=== PATIENT | male | born 1970 | race Caucasian/White ===

== ENCOUNTER 2018-11-19 21:00 | Inpatient (IN) | payer OTHER ==
[~2018-11-19] VITALS: Ht 195.6 cm; Wt 99.8 kg
--- NOTE | 2018-11-19 21:08 | NUR ---
ED Nurse Note: PATIENT AMBULATED TO ED CO RIGHT ARM AND HAND ABSCESS AND COUGH X3 DAYS. Pt admit INJECTED METH LAST NIGHT. Pt is AO x 4times, VSS, on room air no distress. ERMD seen Pt at bedside.
[2018-11-19] MEDS ORDERED: Vancomycin 1.5 GM in NS 275 ML IVPB ONE (21:30)
[2018-11-19] MEDS ORDERED: Morphine Sulfate 4mg/ml Inj (IV USE ONLY) IVP ONE (21:30)
[2018-11-19 22:09] LABS: BASOPHILS % (AUTO) 1.1 % (0.0-2.0); EOSINOPHILS % (AUTO) 1.5 % (0.0-3.0); HEMATOCRIT 39.8 % (42.0-52.0); HEMOGLOBIN 13.3 G/DL (14.2-18.0); LYMPHOCYTES % (AUTO) 15.5 % (20.0-45.0); MEAN CORPUSCULAR VOLUME 76 FL (80-99); MONOCYTES % (AUTO) 8.8 % (1.0-10.0); NEUTROPHILS % (AUTO) 73.1 % (45.0-75.0); PLATELET COUNT 311 K/UL (150-450); RED BLOOD COUNT 5.23 M/UL (4.70-6.10)
--- NOTE | 2018-11-19 22:12 | NUR ---
ED Nurse Note: Blood sample sent to lab.
[2018-11-19 22:14] VITALS: BP 134/86
[2018-11-19 22:15] LABS: ANION GAP 9 mmol/L (5-15); BLOOD UREA NITROGEN 14 mg/dL (7-18); CALCIUM 8.7 MG/DL (8.5-10.1); CARBON DIOXIDE 26 MMOL/L (21-32); CHLORIDE 100 MMOL/L (98-107); CREATININE 1.1 MG/DL (0.55-1.30); POTASSIUM 3.8 MMOL/L (3.5-5.1); SODIUM 135 MMOL/L (136-145)
[2018-11-19 22:20] LABS: ALANINE AMINOTRANSFERASE 13 U/L (12-78); ALBUMIN 3.6 G/DL (3.4-5.0); ALKALINE PHOSPHATASE 96 U/L (46-116); ASPARTATE AMINO TRANSFERASE 13 U/L (15-37); BILIRUBIN,TOTAL 0.5 MG/DL (0.2-1.0)
--- NOTE | 2018-11-19 22:55 | NUR ---
ED Nurse Note: Blood culture sent to lab.
--- NOTE | 2018-11-19 23:00 | NUR ---
ED Nurse Note: Pt states not eating for 1 day, food and drinks offered.
--- NOTE | 2018-11-19 23:41 | NUR ---
ED Nurse Note: Pt will admit to 3E med surg, but Pt refused [facility] policy but Pt still refused.
--- NOTE | 2018-11-19 23:50 | NUR ---
ED Nurse Note: Report given to LYNETTE Nur. Pt is AO x 4times, on room air no distress. Belongings and list carry to floor with Pt.
--- NOTE | 2018-11-19 23:53 | Emergency Room Report ---
History of Present Illness General Chief Complaint: Skin Rash/Abscess Source: Patient Present Illness HPI 48-year-old male presents ED for evaluation. Complaining of pain and redness to his right arm for the last 3 days. States that he is an IV drug user and injected. States pain is throbbing, 8 out of 10, nonradiating. Denies fevers or chills. Denies any discharge. History of HIV. States he has not been on his medications for the last 4 months because he does not have a PMD. No other aggravating relieving factors. Denies any other associated symptoms Allergies: Coded Allergies: ABACAVIR (Verified Allergy, Severe, Shortness of Breath, 11/19/18) LAMOTRIGINE (Verified Allergy, Unknown, 11/19/18) Patient History Past Medical History: HIV Past Surgical History: none Pertinent Family History: none Social History: Denies: smoking, alcohol use, drug use Immunizations: UTD Reviewed Nursing Documentation: PMH: Agreed; PSxH: Agreed Nursing Documentation-PMH Hx Cancer: Yes Review of Systems All Other Systems: negative except mentioned in HPI Physical Exam Vital Signs Date Time Temp Pulse Resp B/P (MAP) Pulse Ox O2 Delivery O2 Flow Rate FiO2 11/19/18 21:04 97.5 135 0 142/84 (103) 95 11/19/18 22:14 Room Air Sp02 EP Interpretation: reviewed, normal General Appearance: no apparent distress, alert, GCS 15, non-toxic Head: normocephalic, atraumatic Eyes: bilateral eye normal inspection, bilateral eye PERRL ENT: hearing grossly normal, normal pharynx, no angioedema, normal voice Neck: full range of motion, supple/symm/no masses Respiratory: chest non-tender, lungs clear, normal breath sounds, speaking full sentences Cardiovascular #1: regular rate, rhythm, no edema Cardiovascular #2: 2+ carotid (R), 2+ carotid (L), 2+ radial (R), 2+ radial (L) , 2+ dorsalis pedis (R), 2+ dorsalis pedis (L) Gastrointestinal: normal bowel sounds, non tender, soft, non-distended, no guarding, no rebound Rectal: deferred Genitourinary: normal inspection, no CVA tenderness Musculoskeletal: back normal, gait/station normal, normal range of motion, tender - RUE Neurologic: alert, oriented x3, responsive, motor strength/tone normal, sensory intact, speech normal Psychiatric: judgement/insight normal, memory normal, mood/affect normal, no suicidal/homicidal ideation Reflexes: 3+ bicep (R), 3+ bicep (L), 3+ tricep (R), 3+ tricep (L), 3+ knee (R) , 3+ knee (L) Skin: normal color, warm/dry, well hydrated, other - erythema/induration to R forearm. no fluctuance or discharge Lymphatic: no adenopathy Medical Decision Making Diagnostic Impression: Primary Impression: Cellulitis of right upper extremity Additional Impressions: HIV (human immunodeficiency virus infection) Qualified Codes: B20 - Human immunodeficiency virus [HIV] disease IVDU (intravenous drug user) ER Course Hospital Course 48-year-old male presents to ED with redness, swelling to [facility]. h/o IVDA Differential diagnoses include: Cellulitis, abscess, rash. Clinical course Patient placed on stretcher. After initial history and physical I ordered labs , blood Cx, UA, IVFs labs reviewed - leukocytosis, Hb/Hct stable, no electrolyte abnormalities, lactic ok . Given history of IV drug use and immunocompromised state not taking his HIV meds I believe patient requires admission. broad spectrum antibiotics given. Case discussed with Dr Alvarado and he agreed to accept the patient to his service for further care and support Diagnosis - cellulitis of RUE, HIV, IVDA Patient admitted to floor in serious condition Labs Test 11/19/18 21:53 11/19/18 23:15 White Blood Count 11.0 K/UL (4.8-10.8) Red Blood Count 5.23 M/UL (4.70-6.10) Hemoglobin 13.3 G/DL (14.2-18.0) Hematocrit 39.8 % (42.0-52.0) Mean Corpuscular Volume 76 FL (80-99) Mean Corpuscular Hemoglobin 25.4 PG (27.0-31.0) Mean Corpuscular Hemoglobin Concent 33.5 G/DL (32.0-36.0) Red Cell Distribution Width 14.0 % (11.6-14.8) Platelet Count 311 K/UL (150-450) Mean Platelet Volume 5.3 FL (6.5-10.1) Neutrophils (%) (Auto) 73.1 % (45.0-75.0) Lymphocytes (%) (Auto) 15.5 % (20.0-45.0) Monocytes (%) (Auto) 8.8 % (1.0-10.0) Eosinophils (%) (Auto) 1.5 % (0.0-3.0) Basophils (%) (Auto) 1.1 % (0.0-2.0) Sodium Level 135 MMOL/L (136-145) Potassium Level 3.8 MMOL/L (3.5-5.1) Chloride Level 100 MMOL/L (98-107) Carbon Dioxide Level 26 MMOL/L (21-32) Anion Gap 9 mmol/L (5-15) Blood Urea Nitrogen 14 mg/dL (7-18) Creatinine 1.1 MG/DL (0.55-1.30) Estimat Glomerular Filtration Rate > 60 mL/min (>60) Glucose Level 150 MG/DL (74-106) Lactic Acid Level 1.30 mmol/L (0.4-2.0) Calcium Level 8.7 MG/DL (8.5-10.1) Total Bilirubin 0.5 MG/DL (0.2-1.0) Aspartate Amino Transf (AST/SGOT) 13 U/L (15-37) Alanine Aminotransferase (ALT/SGPT) 13 U/L (12-78) Alkaline Phosphatase 96 U/L (46-116) Total Protein 7.2 G/DL (6.4-8.2) Albumin 3.6 G/DL (3.4-5.0) Globulin 3.6 g/dL Albumin/Globulin Ratio 1.0 (1.0-2.7) Prothrombin Time 10.9 SEC (9.30-11.50) Prothromb Time International Ratio 1.0 (0.9-1.1) Activated Partial Thromboplast Time 32 SEC (23-33) Last Vital Signs Date Time Temp Pulse Resp B/P (MAP) Pulse Ox O2 Delivery O2 Flow Rate FiO2 11/19/18 22:14 98.4 87 20 134/86 95 Room Air Status: improved Disposition: ADMITTED INPATIENT Condition: Serious Scripts No Active Prescriptions or Reported Meds Referrals: DANNY CRESPO,REFERRING (PCP) Patric Eckert MD Nov 19, 2018 23:52
--- NOTE | 2018-11-19 23:55 | NUR ---
ED Nurse Note: Urine sample sent to lab.
[2018-11-19 23:56] VITALS: BP 128/82
[2018-11-20] VITALS (7 sets, daily range): BP systolic 117–140; BP diastolic 78–85
--- NOTE | 2018-11-20 | NUR ---
NURSE NOTES: Received pt from [facility]heeraj via e[facility], CIARA, c/o sore throat and back pain, no distress noted. IV L wrist #22 patent and intact. Will admit pt to floor. All belongings inventoried. MRSA screen done. Refused VRE screen. Bed in lowest position and locked, side rails up x 2, call light within reach. Will continue to monitor.
[2018-11-20] MEDS ORDERED: Chloraseptic Spray 20mL Bottle ORAL PRN (01:15)
[2018-11-20] MEDS: Morphine Sulfate 4mg/ml Inj (IV USE ONLY) IVP PRN ×4 (01:52→23:22)
[2018-11-20] MEDS: guaiFENesin w/Codeine 5ml Liq ud ORAL PRN (02:51)
[2018-11-20 06:15] LABS: EOSINOPHILS % (AUTO) 3.4 % (0.0-3.0); HEMOGLOBIN 12.7 G/DL (14.2-18.0); MEAN CORPUSCULAR VOLUME 78 FL (80-99); MONOCYTES % (AUTO) 7.5 % (1.0-10.0); NEUTROPHILS % (AUTO) 69.2 % (45.0-75.0); PLATELET COUNT 263 K/UL (150-450); RED BLOOD COUNT 4.85 M/UL (4.70-6.10); RED CELL DISTRIBUTION WIDTH 14.5 % (11.6-14.8); WHITE BLOOD COUNT 9.7 K/UL (4.8-10.8)
[2018-11-20 06:42] LABS: ALANINE AMINOTRANSFERASE 11 U/L (12-78); ALBUMIN 3.1 G/DL (3.4-5.0); ALBUMIN/GLOBULIN RATIO 0.9 (1.0-2.7); ALKALINE PHOSPHATASE 80 U/L (46-116); ANION GAP 8 mmol/L (5-15); ASPARTATE AMINO TRANSFERASE 13 U/L (15-37); BILIRUBIN,TOTAL 0.5 MG/DL (0.2-1.0); BLOOD UREA NITROGEN 10 mg/dL (7-18); CALCIUM 8.1 MG/DL (8.5-10.1); CARBON DIOXIDE 25 MMOL/L (21-32); CHLORIDE 97 MMOL/L (98-107); CREATININE 0.9 MG/DL (0.55-1.30); POTASSIUM 3.7 MMOL/L (3.5-5.1); SODIUM 130 MMOL/L (136-145)
--- NOTE | 2018-11-20 07:05 | NUR ---
NURSE NOTES: Report received from Boom RN, rounds made. Patient sleeping in supine position in bed. No distress noted on RA. LW heplock intact, site asymptomatic. Right hand wound noted, ARLINE, redness to surrounding skin, wound bed dry/scabbed, no drainage, awaiting wound RN consultation. Bilateral SCDs, machine off, awaiting on unit from [facility], will apply. Call light in reach, bed in lowest position, will continue to monitor.
--- NOTE | 2018-11-20 07:34 | NUR ---
HAND-OFF: Report given to LYNETTE Quinn. pt in stable condition.
--- NOTE | 2018-11-20 08:25 | NUR ---
NURSE NOTES: Message left for Dr. Catherine regarding patient temperature 101.3, diaphoretic and HR 132. Awaiting call back.
[2018-11-20] MEDS: Vancomycin 1.5gm Premix 275 ML IVPB SCH ×2 (08:44→23:06)
[2018-11-20] MEDS ORDERED: Mylanta II UD 30ml ORAL PRN (10:30)
[2018-11-20] MEDS ORDERED: Miralax 17gm pkt ORAL PRN (10:30)
[2018-11-20] MEDS ORDERED: Milk of Magnesia 30ml Ud ORAL PRN (10:30)
[2018-11-20] MEDS ORDERED: Morphine Sulfate 2mg/ml Inj(IV/IM USE ONLY) IVP PRN (10:30)
[2018-11-20] MEDS ORDERED: LORazepam Inj 2mg/ml 1ml IV PRN (10:30)
--- NOTE | 2018-11-20 10:40 | NUR ---
NURSE NOTES: Wound care nurse assessed patient and provided wound care. YA with redness, skin tightness, pain/warm to touch, mild swelling noted. Elevated RUE on pillow, applied ice pack to RUE. Patient diaphoretic, calm, in & out of sleep, easily aroused. Chloraseptic spray provided at bedside, will continue to monitor. Patient requested that his [employer] and [employer] card to be put in a safe, Nursing supervisor tank house notified. New SCD machine applied, alarm still going off.
--- NOTE | 2018-11-20 10:47 | NUR ---
*-* NO INSURANCE INFORMATION UNABLE TO SEND CLINICALS OR REVIEWS *-*
--- NOTE | 2018-11-20 12:06 | NUR ---
Social Service Note SW met with patient to assess for homelessness and substance abuse. Patient is alert, oriented and verbally responsive. The address provided is a mailing address only. Patient states he has been on and off homeless over a span since 1981. Patient states he doesn't utilize shelters. Patient states he moves between friends, buildings and random places. Patient released from care home 07/2018 and hasn't followed up with health care provider. Patient denies being assigned to an AB 109 program. Patient states he is not on probation or parole. Patient began shooting up since his release from care home. Patient denies a source of income but is able to get by. Patient states he shoots up weekly however it can increase to connective days. Patient states he is HIV positive and hasn't obtain medication since his release. Patient states he obtained HIV through sharing needles. [facility] [phone]. Patient receptive to follow up appointments. Patient's emergency contact is Alfredo Macario [phone]. Patient doesn't appear receptive to halfway referrals and stated he will make some calls to determine where he will go upon discharge. Homeless coordinator will arrange follow up appointments and assess for additional homeless resources. Will continue to monitor.
--- NOTE | 2018-11-20 12:10 | NUR ---
NURSE NOTES: Message left for Dr. Gallagher regarding, LW IV site, pain to touch and slightly red/swollen, unable to obtain new site and need orders for PICC line. Awaiting call back.
--- NOTE | 2018-11-20 14:38 | NUR ---
*-* INSURANCE *-* ALL CLINICALS HAVE BEEN FAXED TO: MEAGHAN JONES: REMI Benavidez F:[phone] P:[phone]
--- NOTE | 2018-11-20 15:47 | NUR ---
NURSE NOTES: WOUND CARE NOTES:Pt presented on admission with wound at base of R thumb. Wound is necrotic with erythematous borders .periwound erythematous and indurated with elevation in skin temp.No odor or exudate noted but pt verbalized wound previously exuded pus.# 2 small pustules noted superior to wound on dorsal and lateral R thumb.R arm swollen. Pt rated pain 10/10. Tx.Plan:Cleanse wound with Saline. Apply Silvasorb gel. Cover with Optifoam drsg. Change Daily and prn.
--- NOTE | 2018-11-20 15:53 | History and Physical ---
History of Present Illness General Date patient seen: Nov 20, 2018 Time patient seen: 15:47 Reason for Hospitalization: Skin Rash/Abscess Present Illness HPI 48-year-old male who presented ED for pain and redness to his right arm for the last 3 days. Stated that he is an IV drug user and injected very recently. Denies fevers or chills. Denied any discharge. He has History of HIV, however has not been on his medications for the last 4 months because he does not have a PMD. No other aggravating relieving factors. Denies any other associated symptoms. He was admitted overnight for IV abx. Today he has a fever >101. States he has a lot of pain in the RUE. He states he is also Hep C positive. Allergies: Coded Allergies: ABACAVIR (Verified Allergy, Severe, Shortness of Breath, 11/19/18) LAMOTRIGINE (Verified Allergy, Unknown, 11/19/18) Medication History No Active Prescriptions or Reported Meds Patient History History Provided By: Patient Healthcare decision maker Resuscitation status Advanced Directive on File Past Medical/Surgical History Past Medical/Surgical History: (1) HIV (human immunodeficiency virus infection) (2) IVDU (intravenous drug user) Family History Family History: Patient reports no known family medical history. Social History Social History: (1) IVDU (intravenous drug user) Review of Systems ROS Narrative General: alert, cooperative, no distress, appears stated age Head: normocephalic, without obvious abnormality, atraumatic Eyes: conjunctivae/corneas clear. PERRL, EOM's intact Throat: lips, mucosa, and tongue normal. MMM Neck: supple, symmetrical, trachea midline, and no JVD Lungs: clear to auscultation bilaterally Heart: regular rate and rhythm, S1, S2 normal, no murmur, click, rub or gallop Abdomen: soft, non-tender, non-distended, bowel sounds normal; no masses or organomegaly Extremities: RUE with redness, warm to touch, tender to palpation, + edema Pulses: 2+ and symmetric Skin: skin color, texture, turgor normal; no rashes or lesions Neurologic: grossly normal, no focal deficits Physical Exam Physical Exam Narrative General: alert, cooperative, no distress, appears stated age Head: normocephalic, without obvious abnormality, atraumatic Eyes: conjunctivae/corneas clear. PERRL, EOM's intact Throat: lips, mucosa, and tongue normal. MMM Neck: supple, symmetrical, trachea midline, and no JVD Lungs: clear to auscultation bilaterally Heart: regular rate and rhythm, S1, S2 normal, no murmur, click, rub or gallop Abdomen: soft, non-tender, non-distended, bowel sounds normal; no masses or organomegaly Extremities: RUE with redness, warm to touch, tender to palpation, + edema Pulses: 2+ and symmetric Skin: skin color, texture, turgor normal; no rashes or lesions Neurologic: grossly normal, no focal deficits Last 24 Hour Vital Signs Date Time Temp Pulse Resp B/P (MAP) Pulse Ox O2 Delivery O2 Flow Rate FiO2 11/20/18 14:04 99.1 11/20/18 12:00 101.1 123 20 119/78 (92) 96 11/20/18 11:00 99.4 11/20/18 09:55 101.2 123 20 123/82 (96) 96 11/20/18 09:00 Room Air 11/20/18 08:00 101.3 125 22 126/78 (94) 95 11/20/18 04:00 99.4 112 20 135/78 (97) 96 11/20/18 00:10 Room Air 11/20/18 00:09 98.1 81 20 128/82 98 Room Air 11/20/18 00:00 98.2 94 20 117/85 (96) 98 11/19/18 23:56 98.1 81 20 128/82 98 Room Air 11/19/18 22:14 98.4 87 20 134/86 95 Room Air 11/19/18 21:04 97.5 135 0 142/84 (103) 95 Intake and Output 11/19/18 11/20/18 18:59 06:59 Intake Total 830 ml Output Total 300 ml Balance 530 ml Intake Oral 830 ml Output Urine Total 300 ml # Voids 2 Laboratory Tests Test 11/19/18 21:53 11/19/18 23:15 11/20/18 05:25 White Blood Count 11.0 K/UL (4.8-10.8) H 9.7 K/UL (4.8-10.8) Red Blood Count 5.23 M/UL (4.70-6.10) 4.85 M/UL (4.70-6.10) Hemoglobin 13.3 G/DL (14.2-18.0) L 12.7 G/DL (14.2-18.0) L Hematocrit 39.8 % (42.0-52.0) L 38.0 % (42.0-52.0) L Mean Corpuscular Volume 76 FL (80-99) L 78 FL (80-99) L Mean Corpuscular Hemoglobin 25.4 PG (27.0-31.0) L 26.1 PG (27.0-31.0) L Mean Corpuscular Hemoglobin Concent 33.5 G/DL (32.0-36.0) 33.4 G/DL (32.0-36.0) Red Cell Distribution Width 14.0 % (11.6-14.8) 14.5 % (11.6-14.8) Platelet Count 311 K/UL (150-450) 263 K/UL (150-450) Mean Platelet Volume 5.3 FL (6.5-10.1) L 6.0 FL (6.5-10.1) L Neutrophils (%) (Auto) 73.1 % (45.0-75.0) 69.2 % (45.0-75.0) Lymphocytes (%) (Auto) 15.5 % (20.0-45.0) L 19.0 % (20.0-45.0) L Monocytes (%) (Auto) 8.8 % (1.0-10.0) 7.5 % (1.0-10.0) Eosinophils (%) (Auto) 1.5 % (0.0-3.0) 3.4 % (0.0-3.0) H Basophils (%) (Auto) 1.1 % (0.0-2.0) 1.0 % (0.0-2.0) Sodium Level 135 MMOL/L (136-145) L 130 MMOL/L (136-145) L Potassium Level 3.8 MMOL/L (3.5-5.1) 3.7 MMOL/L (3.5-5.1) Chloride Level 100 MMOL/L (98-107) 97 MMOL/L (98-107) L Carbon Dioxide Level 26 MMOL/L (21-32) 25 MMOL/L (21-32) Anion Gap 9 mmol/L (5-15) 8 mmol/L (5-15) Blood Urea Nitrogen 14 mg/dL (7-18) 10 mg/dL (7-18) Creatinine 1.1 MG/DL (0.55-1.30) 0.9 MG/DL (0.55-1.30) Estimat Glomerular Filtration Rate > 60 mL/min (>60) > 60 mL/min (>60) Glucose Level 150 MG/DL (74-106) H 117 MG/DL (74-106) H Lactic Acid Level 1.30 mmol/L (0.4-2.0) Calcium Level 8.7 MG/DL (8.5-10.1) 8.1 MG/DL (8.5-10.1) L Total Bilirubin 0.5 MG/DL (0.2-1.0) 0.5 MG/DL (0.2-1.0) Aspartate Amino Transf (AST/SGOT) 13 U/L (15-37) L 13 U/L (15-37) L Alanine Aminotransferase (ALT/SGPT) 13 U/L (12-78) 11 U/L (12-78) L Alkaline Phosphatase 96 U/L (46-116) 80 U/L (46-116) Total Protein 7.2 G/DL (6.4-8.2) 6.5 G/DL (6.4-8.2) Albumin 3.6 G/DL (3.4-5.0) 3.1 G/DL (3.4-5.0) L Globulin 3.6 g/dL 3.4 g/dL Albumin/Globulin Ratio 1.0 (1.0-2.7) 0.9 (1.0-2.7) L Prothrombin Time 10.9 SEC (9.30-11.50) Prothromb Time International Ratio 1.0 (0.9-1.1) Activated Partial Thromboplast Time 32 SEC (23-33) Height (Feet): 6 Height (Inches): 5.00 Weight (Pounds): 220 Medications Current Medications Medications (Trade) Dose Ordered Sig/Macarena Route PRN Reason Start Time Stop Time Status Last Admin Dose Admin Acetaminophen (Tylenol) 650 mg Q4H PRN ORAL Mild Pain (Pain Scale 1-3) 11/20/18 10:30 12/20/18 10:29 11/20/18 11:00 Acetaminophen (Tylenol) 650 mg Q4H PRN ORAL T>100.5 11/20/18 10:30 12/20/18 10:29 Al Hydroxide/Mg Hydroxide (Mylanta II) 30 ml Q6H PRN ORAL dyspepsia 11/20/18 10:30 12/20/18 10:29 Bisacodyl (Dulcolax) 10 mg HSPRN PRN RECTAL Constipation 11/20/18 10:30 12/20/18 10:29 Cetylpyridinium Chloride (Cepacol) 1 lozg Q2H PRN LUCIO For Pain 11/20/18 01:15 12/20/18 01:14 11/20/18 01:52 Dextrose (Dextrose 50%) 25 ml Q30M PRN IV Hypoglycemia 11/20/18 10:30 12/20/18 10:29 Dextrose (Dextrose 50%) 50 ml Q30M PRN IV Hypoglycemia 11/20/18 10:30 12/20/18 10:29 Diphenhydramine HCl (Benadryl) 25 mg Q6H PRN ORAL Itching/Pruritis 11/20/18 10:30 12/20/18 10:29 Docusate Sodium (Colace) 100 mg EVERY 12 HOURS ORAL 11/20/18 21:00 12/20/18 20:59 Guaifenesin/ Codeine Phosphate (Robitussin with codeine) 5 ml Q6H PRN ORAL For Cough 11/20/18 01:15 12/20/18 01:14 11/20/18 02:51 Heparin Sodium (Porcine) (Heparin 5000 units/ml) 5,000 units EVERY 8 HOURS SUBQ 11/20/18 14:00 12/20/18 13:59 Lorazepam (Ativan 2mg/ml 1ml) 0.5 mg Q4H PRN IV For Anxiety 11/20/18 10:30 11/27/18 10:29 Magnesium Hydroxide (Mom) 30 ml HSPRN PRN ORAL Constipation 11/20/18 10:30 12/20/18 10:29 Morphine Sulfate (Morphine Sulfate) 2 mg Q4H PRN IVP Moderate Pain (Pain Scale 4-6) 11/20/18 10:30 11/27/18 10:29 Morphine Sulfate (Morphine Sulfate) 4 mg Q4H PRN IVP Severe Pain (Pain Scale 7-10) 11/20/18 10:30 11/27/18 10:29 Ondansetron HCl (Zofran) 4 mg Q6H PRN IVP Nausea & Vomiting 11/20/18 10:30 12/20/18 10:29 Phenol/Menthol (Chloraseptic) 1 spray Q3H PRN ORAL For Pain 11/20/18 01:15 12/20/18 01:14 Polyethylene Glycol (Miralax) 17 gm HSPRN PRN ORAL Constipation 11/20/18 10:30 12/20/18 10:29 Sodium Chloride 1,000 ml @ 125 mls/hr Q8H IVLG 11/20/18 11:00 12/20/18 10:59 Temazepam (Restoril) 15 mg HSPRN PRN ORAL Insomnia 11/20/18 21:00 11/27/18 20:59 Vancomycin HCl/ Dextrose 275 ml @ 137.5 mls/ hr Q12H IVPB 11/20/18 09:00 11/25/18 08:59 11/20/18 08:44 Assessment/Plan Assessment/Plan: 48 y/o man with HIV pos, presents with RUE cellulitis with poss abscess, with hx of recent IVDA. #RUE Cellulitis, r/o abscess - Cont broad spectrum IV abx - ID consultation - f/u cultures - Pain control - Surgical consult to r/o underlying abscess #HIV disease #Hep C pos #IVDA - Monitor for withdrawal symptoms - Check CD4 count - ID evaluation, pt not on any HIV medications Vinicius Gallagher MD Nov 20, 2018 15:53
[2018-11-20] MEDS: Heparin 5000 units/ml inj SUBQ SCH ×2 (15:56→21:44)
--- NOTE | 2018-11-20 16:13 | NUR ---
CASE MANAGEMENT: INITIAL REVIEW 11/20/2018 48 YO M PRESENTED TO ED FROM HOME CC: SKIN RASH AFTER INJECTING METH LAST NIGHT PMHx: HIV. SI:RIGHT UPPER EXTREMITY CELLULITES. T 97.5 HR 135 B/P 142/84 SATS 95% ON RA WBC 11 NA 135 GLU 150 AST 13 IS: VANCO IV X1 NS BOLUS X1 MORPHINE IV X1 PATIENT ADMITTED TO MED/SURG 11/20/2018 @ 0012 DCP: PATIENT TO BE DISCHARGED TO HOME ONCE MEDICALLY CLEARED. PLAN OF CARE: - Monitor for withdrawal symptoms - Check CD4 count - ID evaluation, pt not on any HIV medications Addendum: 11/21/18 at 1122 by Amy Baker CM [employer]
--- NOTE | 2018-11-20 18:11 | Infectious Diseases Prog Note ---
Assessment/Plan Assessment/Plan Full consult to be dictated: A) 1) right arm/hand cellulitis, ? abscess, sepsis, fevers, mild leukocytosis 2) hiv - not on anti-retroviral therapy 3) ivda 4) hep c P) 1) vancomycin and cefepime 2) check cultures 3) surgical evaluation 4) check cd4/t-cell count and viral load 5) patient will need to follow up with primary hiv and hep c providers as outpatient for genotyping and tx 6) thank you Subjective Allergies: Coded Allergies: ABACAVIR (Verified Allergy, Severe, Shortness of Breath, 11/19/18) LAMOTRIGINE (Verified Allergy, Unknown, 11/19/18) Objective Vital Signs Last 24 Hour Vital Signs Date Time Temp Pulse Resp B/P (MAP) Pulse Ox O2 Delivery O2 Flow Rate FiO2 11/20/18 16:00 98.3 111 20 140/81 (100) 98 11/20/18 14:04 99.1 11/20/18 12:00 101.1 123 20 119/78 (92) 96 11/20/18 11:00 99.4 11/20/18 09:55 101.2 123 20 123/82 (96) 96 11/20/18 09:00 Room Air 11/20/18 08:00 101.3 125 22 126/78 (94) 95 11/20/18 04:00 99.4 112 20 135/78 (97) 96 11/20/18 00:10 Room Air 11/20/18 00:09 98.1 81 20 128/82 98 Room Air 11/20/18 00:00 98.2 94 20 117/85 (96) 98 11/19/18 23:56 98.1 81 20 128/82 98 Room Air 11/19/18 22:14 98.4 87 20 134/86 95 Room Air 11/19/18 21:04 97.5 135 0 142/84 (103) 95 Height (Feet): 6 Height (Inches): 5.00 Weight (Pounds): 220 Laboratory Tests Test 11/19/18 21:53 11/19/18 23:15 11/20/18 05:25 White Blood Count 11.0 K/UL (4.8-10.8) H 9.7 K/UL (4.8-10.8) Red Blood Count 5.23 M/UL (4.70-6.10) 4.85 M/UL (4.70-6.10) Hemoglobin 13.3 G/DL (14.2-18.0) L 12.7 G/DL (14.2-18.0) L Hematocrit 39.8 % (42.0-52.0) L 38.0 % (42.0-52.0) L Mean Corpuscular Volume 76 FL (80-99) L 78 FL (80-99) L Mean Corpuscular Hemoglobin 25.4 PG (27.0-31.0) L 26.1 PG (27.0-31.0) L Mean Corpuscular Hemoglobin Concent 33.5 G/DL (32.0-36.0) 33.4 G/DL (32.0-36.0) Red Cell Distribution Width 14.0 % (11.6-14.8) 14.5 % (11.6-14.8) Platelet Count 311 K/UL (150-450) 263 K/UL (150-450) Mean Platelet Volume 5.3 FL (6.5-10.1) L 6.0 FL (6.5-10.1) L Neutrophils (%) (Auto) 73.1 % (45.0-75.0) 69.2 % (45.0-75.0) Lymphocytes (%) (Auto) 15.5 % (20.0-45.0) L 19.0 % (20.0-45.0) L Monocytes (%) (Auto) 8.8 % (1.0-10.0) 7.5 % (1.0-10.0) Eosinophils (%) (Auto) 1.5 % (0.0-3.0) 3.4 % (0.0-3.0) H Basophils (%) (Auto) 1.1 % (0.0-2.0) 1.0 % (0.0-2.0) Sodium Level 135 MMOL/L (136-145) L 130 MMOL/L (136-145) L Potassium Level 3.8 MMOL/L (3.5-5.1) 3.7 MMOL/L (3.5-5.1) Chloride Level 100 MMOL/L (98-107) 97 MMOL/L (98-107) L Carbon Dioxide Level 26 MMOL/L (21-32) 25 MMOL/L (21-32) Anion Gap 9 mmol/L (5-15) 8 mmol/L (5-15) Blood Urea Nitrogen 14 mg/dL (7-18) 10 mg/dL (7-18) Creatinine 1.1 MG/DL (0.55-1.30) 0.9 MG/DL (0.55-1.30) Estimat Glomerular Filtration Rate > 60 mL/min (>60) > 60 mL/min (>60) Glucose Level 150 MG/DL (74-106) H 117 MG/DL (74-106) H Lactic Acid Level 1.30 mmol/L (0.4-2.0) Calcium Level 8.7 MG/DL (8.5-10.1) 8.1 MG/DL (8.5-10.1) L Total Bilirubin 0.5 MG/DL (0.2-1.0) 0.5 MG/DL (0.2-1.0) Aspartate Amino Transf (AST/SGOT) 13 U/L (15-37) L 13 U/L (15-37) L Alanine Aminotransferase (ALT/SGPT) 13 U/L (12-78) 11 U/L (12-78) L Alkaline Phosphatase 96 U/L (46-116) 80 U/L (46-116) Total Protein 7.2 G/DL (6.4-8.2) 6.5 G/DL (6.4-8.2) Albumin 3.6 G/DL (3.4-5.0) 3.1 G/DL (3.4-5.0) L Globulin 3.6 g/dL 3.4 g/dL Albumin/Globulin Ratio 1.0 (1.0-2.7) 0.9 (1.0-2.7) L Prothrombin Time 10.9 SEC (9.30-11.50) Prothromb Time International Ratio 1.0 (0.9-1.1) Activated Partial Thromboplast Time 32 SEC (23-33) Current Medications Medications (Trade) Dose Ordered Sig/Macarena Route PRN Reason Start Time Stop Time Status Last Admin Dose Admin Acetaminophen (Tylenol) 650 mg Q4H PRN ORAL Mild Pain (Pain Scale 1-3) 11/20/18 10:30 12/20/18 10:29 11/20/18 11:00 Acetaminophen (Tylenol) 650 mg Q4H PRN ORAL T>100.5 11/20/18 10:30 12/20/18 10:29 Al Hydroxide/Mg Hydroxide (Mylanta II) 30 ml Q6H PRN ORAL dyspepsia 11/20/18 10:30 12/20/18 10:29 Bisacodyl (Dulcolax) 10 mg HSPRN PRN RECTAL Constipation 11/20/18 10:30 12/20/18 10:29 Cefepime HCl 2 gm/ Dextrose 100 ml @ 200 mls/hr Q12HR IVPB 11/20/18 21:00 11/27/18 20:59 Cetylpyridinium Chloride (Cepacol) 1 lozg Q2H PRN LUCIO For Pain 11/20/18 01:15 12/20/18 01:14 11/20/18 01:52 Dextrose (Dextrose 50%) 25 ml Q30M PRN IV Hypoglycemia 11/20/18 10:30 12/20/18 10:29 Dextrose (Dextrose 50%) 50 ml Q30M PRN IV Hypoglycemia 11/20/18 10:30 12/20/18 10:29 Diphenhydramine HCl (Benadryl) 25 mg Q6H PRN ORAL Itching/Pruritis 11/20/18 10:30 12/20/18 10:29 Docusate Sodium (Colace) 100 mg EVERY 12 HOURS ORAL 11/20/18 21:00 12/20/18 20:59 Guaifenesin/ Codeine Phosphate (Robitussin with codeine) 5 ml Q6H PRN ORAL For Cough 11/20/18 01:15 12/20/18 01:14 11/20/18 02:51 Heparin Sodium (Porcine) (Heparin 5000 units/ml) 5,000 units EVERY 8 HOURS SUBQ 11/20/18 14:00 12/20/18 13:59 11/20/18 15:56 Lorazepam (Ativan 2mg/ml 1ml) 0.5 mg Q4H PRN IV For Anxiety 11/20/18 10:30 11/27/18 10:29 Magnesium Hydroxide (Mom) 30 ml HSPRN PRN ORAL Constipation 11/20/18 10:30 12/20/18 10:29 Morphine Sulfate (Morphine Sulfate) 2 mg Q4H PRN IVP Moderate Pain (Pain Scale 4-6) 11/20/18 10:30 11/27/18 10:29 Morphine Sulfate (Morphine Sulfate) 4 mg Q4H PRN IVP Severe Pain (Pain Scale 7-10) 11/20/18 10:30 11/27/18 10:29 Ondansetron HCl (Zofran) 4 mg Q6H PRN IVP Nausea & Vomiting 11/20/18 10:30 12/20/18 10:29 Phenol/Menthol (Chloraseptic) 1 spray Q3H PRN ORAL For Pain 11/20/18 01:15 12/20/18 01:14 11/20/18 16:07 Polyethylene Glycol (Miralax) 17 gm HSPRN PRN ORAL Constipation 11/20/18 10:30 12/20/18 10:29 Sodium Chloride 1,000 ml @ 125 mls/hr Q8H IVLG 11/20/18 11:00 12/20/18 10:59 Temazepam (Restoril) 15 mg HSPRN PRN ORAL Insomnia 11/20/18 21:00 11/27/18 20:59 Vancomycin HCl/ Dextrose 275 ml @ 137.5 mls/ hr Q12H IVPB 11/20/18 09:00 11/25/18 08:59 11/20/18 08:44 Prisca June MD Nov 20, 2018 18:11
--- NOTE | 2018-11-20 18:52 | CDS Physician Query ---
PLEASE COMPLETE THE DOCUMENT BEFORE SIGNING Dear ___Elliott Date: _02/20/2019 [employer] Worker/CDS Name: __Carlos [employer] Worker / CDS Phone # Exercise your independent professional judgment when responding to query. Question asked do not imply a particular answer is desired/expected Clinical Documentation States: infection dis cons02/19/19:"right arm/hand cellulitis, ? abscess, sepsis, fevers , mild leukocytosis " Rx: Vanco and Cefepime IV Lab: wbc 11.0 Risk Factors: HIV, IV Drug abuser and Hepc Clinical Findings Show: General variables [x] Fever (temp >38.3 degrees C or 100.4 degrees F) [] Hypothermia (temp<36 degrees C or 96.0 degrees F) [x] Heart rate > 90/min [x] Tachypnea/RR > 20 bpm [] pCO2 < 32 mmHg [] Altered mental status [] Significant edema or positive fluid balance (>20 ml/kg over 24h) [] Hyperglycemia ( Plasma >140 mg/dL or 7.7 mmol/L) in the abscence of diabetes Inflammatory variables [] Leukocytosis (WBC count > 12,000 L1 [] Leukopenia (WBC count < 4000 L1) [] Normal WBC count with greater than 10% immature forms (Bandemia) Hemodynamic variables [] Arterial hypotension (SBP < 90 mm Hg, MAP < 70 mm Hg, or an SBP decrease > 40 mm Hg in adults or less than two sd below normal for age) Organ dysfunction variables [] Arterial hypoxemia (Pao2/Fio2 < 300) [] Acute oliguria (urine output < 0.5 mL/kg/hr for at least 2 hrs despite adequate fluid resuscitation) [] Creatinine increase > 0.5 mg/dL or 44.2 mol/L [] Coagulation abnormalities (INR > 1.5 or aPTT > 60 s) [] Ileus (absent bowel sounds) [] Thrombocytopenia (platelet count < 100,000 L1) [] Hyperbilirubinemia (plasma total bilirubin > 4 mg/dL or 70 mol/L) Tissue Perfusion Variables [] Hyperlactatemia (> 1 mmol/L) [] Decreased capillary refill or mottling Was SEPSIS present on admission? [x] Yes [] No [] Clinically undeterminable Please also document in your Progress Notes and/or Discharge Summary and indicate if the condition was present on admission. Please see my progress note where I documented sepsis due to cellulitis MTDD
--- NOTE | 2018-11-20 20:00 | NUR ---
HAND-OFF: Report given to Yimi RN.
--- NOTE | 2018-11-20 20:05 | NUR ---
NURSE NOTES: Received report from Winston Schaeffer RN. Patient in bed AAO X4 with no complaints of acute pain or discomfort noted at this time. Kept clean, dry, and comfortable in bed. IV line intact and patent SL. On RA with no S/S of resp distress or SOB noted. Safety precaution in place; siderails X2 up, call light within reach, bed in lowest position, brakes and alarm on at all times. Needs and wants anticipated and attended. Surgical wound DSG lower spine area kept dry and intact. Will continue plan of care and monitor for any changes noted. Noted right hand cellulitis, Kept affected area clean, dry and elevated.
[2018-11-20] MEDS: Docusate 100mg cap ORAL SCH (21:44)
[2018-11-21] VITALS: BP 130/80
[2018-11-21] MEDS: Morphine Sulfate 4mg/ml Inj (IV USE ONLY) IVP PRN ×4 (03:06→18:05)
--- NOTE | 2018-11-21 03:30 | NUR ---
NURSE NOTES: Patient in bed asleep with no S/S of distress noted at this time. Will continue to monitor.
[2018-11-21 04:00] VITALS: BP 124/85
[2018-11-21] MEDS: Heparin 5000 units/ml inj SUBQ SCH ×3 (06:31→21:22)
--- NOTE | 2018-11-21 07:40 | NUR ---
HAND-OFF: Report given to Neda Khan RN. Patient in stable condition, endorsed plan of care.
--- NOTE | 2018-11-21 07:45 | NUR ---
NURSE NOTES: WALKING ROUNDS DONE WITH OUTGOING RN. PATIENT ASLEEP BUT AROUSABLE. QUESTIONS ANSWERED NEEDS MET AT THIS TIME. RUE EDEMATOUS PRESENT. ELEVATED ON PILLOW. BRACHIAL AND PEDAL PULSES EQUAL BILATERALLY IN STRENGTH. DISCUSSED PLAN OF CARE FOR THE DAY. VERBALIZED UNDERSTANDING. PAIN CONTROLLED WITH IV NARCOTICS. CALL LIGHT WITHIN BED IN LOWEST POSITION.
[2018-11-21 08:00] VITALS: BP 132/86
[2018-11-21] MEDS: Vancomycin 1.5gm Premix 275 ML IVPB SCH (08:56)
[2018-11-21] MEDS: Docusate 100mg cap ORAL SCH ×2 (08:57→21:20)
[2018-11-21 09:18] LABS: BASOPHILS % (AUTO) 1.3 % (0.0-2.0); EOSINOPHILS % (AUTO) 3.7 % (0.0-3.0); HEMATOCRIT 44.1 % (42.0-52.0); HEMOGLOBIN 14.3 G/DL (14.2-18.0); LYMPHOCYTES % (AUTO) 25.1 % (20.0-45.0); MEAN CORPUSCULAR VOLUME 79 FL (80-99); MONOCYTES % (AUTO) 7.6 % (1.0-10.0); NEUTROPHILS % (AUTO) 62.1 % (45.0-75.0); PLATELET COUNT 263 K/UL (150-450); RED BLOOD COUNT 5.57 M/UL (4.70-6.10); RED CELL DISTRIBUTION WIDTH 14.7 % (11.6-14.8); WHITE BLOOD COUNT 9.6 K/UL (4.8-10.8)
[2018-11-21 09:28] LABS: ANION GAP 7 mmol/L (5-15); BLOOD UREA NITROGEN 9 mg/dL (7-18); CALCIUM 8.5 MG/DL (8.5-10.1); CARBON DIOXIDE 27 MMOL/L (21-32); CHLORIDE 98 MMOL/L (98-107); CREATININE 0.9 MG/DL (0.55-1.30); POTASSIUM 4.1 MMOL/L (3.5-5.1); SODIUM 132 MMOL/L (136-145)
--- NOTE | 2018-11-21 10:30 | NUR ---
NURSE NOTES: CHARGE NURSE RECEIVED REPORT FROM LAB OF GRAM POSITIVE BLOOD CULTURES. LAB TO NOTIFY DR. SCHOFIELD. PATIENT CURRENTLY ON ANTIBIOTICS. MD HERE DOING ROUNDS AND INFORMED NO INTERVENTIONS AT THIS TIME.
--- NOTE | 2018-11-21 11:06 | NUR ---
*-* INSURANCE *-* ALL CLINICALS HAVE BEEN FAXED TO: [employer] JONES: REMI Byrd F:[phone] P:[phone]
--- NOTE | 2018-11-21 11:07 | NUR ---
NURSE NOTES: Received a call from Reema from the lab. Pt is positive Gram (+) Cocci in cluster in 4 bottles. Carried to the primary RN. Per Reema from the lab, Dr Ac will be notified
--- NOTE | 2018-11-21 11:51 | General Progress Note ---
Assessment/Plan Assessment/Plan: 48 y/o man with HIV pos, presents with RUE cellulitis with poss abscess, with hx of recent IVDA. #RUE Cellulitis, r/o abscess - Cont broad spectrum IV abx - ID consultation noted, cefepime added - f/u cultures- now with blood cx growing gram pos rods - May need echo to r/o endocarditis - Pain control - Surgical consult to r/o underlying abscess #HIV disease #Hep C pos #IVDA - Monitor for withdrawal symptoms - Check CD4 count - ID evaluation noted, pt not on any HIV medications, will likely need better outpt followup Subjective Date patient seen: Nov 21, 2018 Time patient seen: 11:49 ROS Limited/Unobtainable: No Allergies: Coded Allergies: ABACAVIR (Verified Allergy, Severe, Shortness of Breath, 11/19/18) LAMOTRIGINE (Verified Allergy, Unknown, 11/19/18) Subjective Feels better today, abx broadened by ID, states RUE is less swollen, still has pain and redness. denied fevers/chills. Objective Last 24 Hour Vital Signs Date Time Temp Pulse Resp B/P (MAP) Pulse Ox O2 Delivery O2 Flow Rate FiO2 11/21/18 08:31 99.2 11/21/18 08:00 99.2 109 19 132/86 (101) 100 11/21/18 04:00 99.2 111 20 124/85 (98) 96 11/21/18 00:00 99.7 124 20 130/80 (97) 95 11/20/18 23:00 Room Air 11/20/18 21:00 Room Air 11/20/18 20:00 99.0 120 20 123/80 (94) 97 11/20/18 16:00 98.3 111 20 140/81 (100) 98 11/20/18 14:04 99.1 11/20/18 12:00 101.1 123 20 119/78 (92) 96 Intake and Output 11/20/18 11/21/18 19:00 07:00 Intake Total 1420 ml Output Total 725 ml 1150 ml Balance 695 ml -1150 ml Intake Oral 1420 ml Output Urine Total 725 ml 1150 ml Laboratory Tests 11/20/18 18:50: White Blood Count 10.2, Lymphocytes 16, Nucleated Red Blood Cells , Absolute Lymphocytes (Cell Immunity 1.6, Percent CD3 Cells 69.5, Absolute CD3 Count 1112 , Percent CD4 Cells 9.7L, Absolute CD4 Count 155L, T-Lymphocyte CD4/CD8 Ratio 0.17L, Percent CD8 Cells 58.2H, Absolute CD8 Count 931H, Rapid Plasma Reagin Non reactive, Hepatitis A IgM Antibody Negative, Hepatitis B Surface Antigen Negative, Hepatitis B Core IgM Antibody Negative, Hepatitis C Antibody 0.8, HIV- 1 RNA (PCR) log10 Value [Pending], HIV-1 RNA Ultraquantitative (PCR) [Pending] 11/21/18 07:15: Sodium Level 132L, Potassium Level 4.1, Chloride Level 98, Carbon Dioxide Level 27, Anion Gap 7, Blood Urea Nitrogen 9, Creatinine 0.9, Estimat Glomerular Filtration Rate > 60, Glucose Level 88, Calcium Level 8.5, Magnesium Level 1.7L 11/21/18 08:00: White Blood Count 9.6, Red Blood Count 5.57, Hemoglobin 14.3, Hematocrit 44.1, Mean Corpuscular Volume 79L, Mean Corpuscular Hemoglobin 25.6L, Mean Corpuscular Hemoglobin Concent 32.3, Red Cell Distribution Width 14.7, Platelet Count 263, Mean Platelet Volume 5.8L, Neutrophils (%) (Auto) 62.1, Lymphocytes ( %) (Auto) 25.1, Monocytes (%) (Auto) 7.6, Eosinophils (%) (Auto) 3.7H, Basophils (%) (Auto) 1.3, Vancomycin Level Trough 9.3 Height (Feet): 6 Height (Inches): 5.00 Weight (Pounds): 220 Objective General: alert, cooperative, no distress, appears stated age Head: normocephalic, without obvious abnormality, atraumatic Eyes: conjunctivae/corneas clear. PERRL, EOM's intact Throat: lips, mucosa, and tongue normal. MMM Neck: supple, symmetrical, trachea midline, and no JVD Lungs: clear to auscultation bilaterally Heart: regular rate and rhythm, S1, S2 normal, no murmur, click, rub or gallop Abdomen: soft, non-tender, non-distended, bowel sounds normal; no masses or organomegaly Extremities: RUE erythema/warmth over antecubital fossa, some edema Pulses: 2+ and symmetric Skin: multiple pustules all over skin, mostly in extremities, likely from IVDU Neurologic: grossly normal, no focal deficits Vinicius Gallagher MD Nov 21, 2018 11:51
[2018-11-21 12:00] VITALS: BP 138/80
--- NOTE | 2018-11-21 14:18 | NUR ---
CASE MANAGEMENT: REVIEW 11/21/2018 SI:RIGHT UPPER EXTREMITY CELLULITES. T 98.8 HR 105 RR 19 B/P 138/80 SATS 99% ON RA NA 132 MG 1.7 IS: IVF @ 125 mL/HR CEFEPIME IV Q12H VANCO IV Q8H MED/SURG STATUS DCP: PATIENT TO BE DISCHARGED TO HOME ONCE MEDICALLY CLEARED. PLAN OF CARE: - f/u cultures- now with blood cx growing gram pos rods - May need echo to r/o endocarditis - Pain control - Surgical consult to r/o underlying abscess
--- NOTE | 2018-11-21 15:10 | Consultation ---
History of Present Illness General Reason for Hospitalization: Skin Rash/Abscess Present Illness HPI 48 year old male with history of HIV uncontrolled and IVDA recently presented with Right arm cellulitis. states he has been using IV drugs recently but in his left arm. for a few days right arm suddenly began to have cellulitis and worsened with pain and discomfort. came to ED with fevers, tachy, and leukocytosis. admitted for care and management. surgery called to evaluate arm. patient seen, chart reviewed, patient examined. states he does not seek medical care and has been using for some time. Allergies: Coded Allergies: ABACAVIR (Verified Allergy, Severe, Shortness of Breath, 11/19/18) LAMOTRIGINE (Verified Allergy, Unknown, 11/19/18) Medication History No Active Prescriptions or Reported Meds Patient History History Provided By: Patient, Medical Record, PMD Healthcare decision maker Resuscitation status Advanced Directive on File Past Medical/Surgical History Past Medical/Surgical History: (1) HIV (human immunodeficiency virus infection) (2) IVDU (intravenous drug user) (3) Cellulitis of right upper extremity Family History Family History: Patient reports no known family medical history. Review of Systems Review of Symptoms General ROS: no weight loss or fever Psychological ROS: no depression or mood changes, no memory loss Ophthalmic ROS: no visual changes or eye irritation ENT ROS: no nasal congestion, hearing loss, dizziness Allergy and Immunology ROS: no allergic symptoms or urticaria Hematological and Lymphatic ROS: no swollen glands, unusual bleeding or bruising Endocrine ROS: no polyuria, polydipsia, weight changes, temperature intolerance Respiratory ROS: no cough, shortness of breath, or wheezing Cardiovascular ROS: no chest pain or dyspnea on exertion Gastrointestinal ROS: denies abdominal pain, no bright red blood in stool. Musculoskeletal ROS: no myalgias or arthralgias Neurological ROS: no TIA or stroke symptoms Dermatological ROS: no new or changing skin lesions, rashes or pruritis Physical Exam Physical Exam General appearance: alert, cooperative, no distress, appears stated age Head: Normocephalic, without obvious abnormality, atraumatic Eyes: conjunctivae/corneas clear. PERRL, EOM's intact. Fundi benign Throat: Lips, mucosa, and tongue normal. Teeth and gums normal Neck: supple, symmetrical, trachea midline, no adenopathy, thyroid: not enlarged, symmetric, no tenderness/mass/nodules, no carotid bruit and no JVD Lungs: clear to auscultation bilaterally Heart: regular rate and rhythm, S1, S2 normal, no murmur, click, rub or gallop Abdomen: soft, non-tender. Bowel sounds normal. No masses, no organomegaly Extremities: extremities with traumatic needle sticks, no cyanosis but edema. RUE with edema from wrist to upper arm. tender. no abscess Pulses: 2+ and symmetric Skin: Skin color, texture, turgor normal. No rashes or lesions Neurologic: Grossly normal Last 24 Hour Vital Signs Date Time Temp Pulse Resp B/P (MAP) Pulse Ox O2 Delivery O2 Flow Rate FiO2 11/21/18 12:00 98.8 105 19 138/80 (99) 99 11/21/18 09:00 Room Air 11/21/18 08:31 99.2 11/21/18 08:00 99.2 109 19 132/86 (101) 100 11/21/18 04:00 99.2 111 20 124/85 (98) 96 11/21/18 00:00 99.7 124 20 130/80 (97) 95 11/20/18 23:00 Room Air 11/20/18 21:00 Room Air 11/20/18 20:00 99.0 120 20 123/80 (94) 97 11/20/18 16:00 98.3 111 20 140/81 (100) 98 Intake and Output 11/20/18 11/21/18 19:00 07:00 Intake Total 1420 ml 125 ml Output Total 725 ml 1150 ml Balance 695 ml -1025 ml Intake Oral 1420 ml IV Total 125 ml Output Urine Total 725 ml 1150 ml Laboratory Tests Test 11/20/18 18:50 11/21/18 07:15 11/21/18 08:00 White Blood Count 10.2 x10E3/uL (3.4-10.8) 9.6 K/UL (4.8-10.8) Lymphocytes 16 % (Not Estab.) Nucleated Red Blood Cells (.) Absolute Lymphocytes (Cell Immunity 1.6 x10E3/uL (0.7-3.1) Percent CD3 Cells 69.5 % (57.5-86.2) Absolute CD3 Count 1112 /uL (622-2402) Percent CD4 Cells 9.7 % (30.8-58.5) L Absolute CD4 Count 155 /uL (359-1519) L T-Lymphocyte CD4/CD8 Ratio 0.17 (0.92-3.72) L Percent CD8 Cells 58.2 % (12.0-35.5) H Absolute CD8 Count 931 /uL (109-897) H Rapid Plasma Reagin Non reactive (Non Reactive) Hepatitis A IgM Antibody Negative (Negative) Hepatitis B Surface Antigen Negative (Negative) Hepatitis B Core IgM Antibody Negative (Negative) Hepatitis C Antibody 0.8 s/co ratio (0.0-0.9) HIV-1 RNA (PCR) log10 Value Pending HIV-1 RNA Ultraquantitative (PCR) Pending Sodium Level 132 MMOL/L (136-145) L Potassium Level 4.1 MMOL/L (3.5-5.1) Chloride Level 98 MMOL/L (98-107) Carbon Dioxide Level 27 MMOL/L (21-32) Anion Gap 7 mmol/L (5-15) Blood Urea Nitrogen 9 mg/dL (7-18) Creatinine 0.9 MG/DL (0.55-1.30) Estimat Glomerular Filtration Rate > 60 mL/min (>60) Glucose Level 88 MG/DL (74-106) Calcium Level 8.5 MG/DL (8.5-10.1) Magnesium Level 1.7 MG/DL (1.8-2.4) L Red Blood Count 5.57 M/UL (4.70-6.10) Hemoglobin 14.3 G/DL (14.2-18.0) Hematocrit 44.1 % (42.0-52.0) Mean Corpuscular Volume 79 FL (80-99) L Mean Corpuscular Hemoglobin 25.6 PG (27.0-31.0) L Mean Corpuscular Hemoglobin Concent 32.3 G/DL (32.0-36.0) Red Cell Distribution Width 14.7 % (11.6-14.8) Platelet Count 263 K/UL (150-450) Mean Platelet Volume 5.8 FL (6.5-10.1) L Neutrophils (%) (Auto) 62.1 % (45.0-75.0) Lymphocytes (%) (Auto) 25.1 % (20.0-45.0) Monocytes (%) (Auto) 7.6 % (1.0-10.0) Eosinophils (%) (Auto) 3.7 % (0.0-3.0) H Basophils (%) (Auto) 1.3 % (0.0-2.0) Vancomycin Level Trough 9.3 ug/mL (5.0-12.0) Height (Feet): 6 Height (Inches): 5.00 Weight (Pounds): 220 Medications Current Medications Medications (Trade) Dose Ordered Sig/Macarena Route PRN Reason Start Time Stop Time Status Last Admin Dose Admin Acetaminophen (Tylenol) 650 mg Q4H PRN ORAL Mild Pain (Pain Scale 1-3) 11/20/18 10:30 12/20/18 10:29 11/20/18 11:00 Acetaminophen (Tylenol) 650 mg Q4H PRN ORAL T>100.5 11/20/18 10:30 12/20/18 10:29 Al Hydroxide/Mg Hydroxide (Mylanta II) 30 ml Q6H PRN ORAL dyspepsia 11/20/18 10:30 12/20/18 10:29 Bisacodyl (Dulcolax) 10 mg HSPRN PRN RECTAL Constipation 11/20/18 10:30 12/20/18 10:29 Cefepime HCl 2 gm/ Dextrose 100 ml @ 200 mls/hr Q12HR IVPB 11/20/18 21:00 11/27/18 20:59 11/21/18 08:55 Cetylpyridinium Chloride (Cepacol) 1 lozg Q2H PRN LUCIO For Pain 11/20/18 01:15 12/20/18 01:14 11/20/18 01:52 Dextrose (Dextrose 50%) 25 ml Q30M PRN IV Hypoglycemia 11/20/18 10:30 12/20/18 10:29 Dextrose (Dextrose 50%) 50 ml Q30M PRN IV Hypoglycemia 11/20/18 10:30 12/20/18 10:29 Diphenhydramine HCl (Benadryl) 25 mg Q6H PRN ORAL Itching/Pruritis 11/20/18 10:30 12/20/18 10:29 Docusate Sodium (Colace) 100 mg EVERY 12 HOURS ORAL 11/20/18 21:00 12/20/18 20:59 11/21/18 08:57 Guaifenesin/ Codeine Phosphate (Robitussin with codeine) 5 ml Q6H PRN ORAL For Cough 11/20/18 01:15 12/20/18 01:14 11/20/18 02:51 Heparin Sodium (Porcine) (Heparin 5000 units/ml) 5,000 units EVERY 8 HOURS SUBQ 11/20/18 14:00 12/20/18 13:59 11/21/18 14:10 Lorazepam (Ativan 2mg/ml 1ml) 0.5 mg Q4H PRN IV For Anxiety 11/20/18 10:30 11/27/18 10:29 Magnesium Hydroxide (Mom) 30 ml HSPRN PRN ORAL Constipation 11/20/18 10:30 12/20/18 10:29 Morphine Sulfate (Morphine Sulfate) 2 mg Q4H PRN IVP Moderate Pain (Pain Scale 4-6) 11/20/18 10:30 11/27/18 10:29 Morphine Sulfate (Morphine Sulfate) 4 mg Q4H PRN IVP Severe Pain (Pain Scale 7-10) 11/20/18 10:30 11/27/18 10:29 11/21/18 13:58 Ondansetron HCl (Zofran) 4 mg Q6H PRN IVP Nausea & Vomiting 11/20/18 10:30 12/20/18 10:29 Phenol/Menthol (Chloraseptic) 1 spray Q3H PRN ORAL For Pain 11/20/18 01:15 12/20/18 01:14 11/20/18 16:07 Polyethylene Glycol (Miralax) 17 gm HSPRN PRN ORAL Constipation 11/20/18 10:30 12/20/18 10:29 Sodium Chloride 1,000 ml @ 125 mls/hr Q8H IVLG 11/20/18 11:00 12/20/18 10:59 11/21/18 13:58 Temazepam (Restoril) 15 mg HSPRN PRN ORAL Insomnia 11/20/18 21:00 11/27/18 20:59 Vancomycin HCl (Vanco rx to dose) 1 ea DAILY PRN MISC . 11/21/18 09:45 12/21/18 09:44 Vancomycin HCl 1 gm/Dextrose 275 ml @ 183.708 mls/hr Q8H IVPB 11/21/18 17:00 11/26/18 16:59 Assessment/Plan Problem List: (1) HIV (human immunodeficiency virus infection) ICD Codes: B20 - Human immunodeficiency virus [HIV] disease SNOMED: 25288613 Qualifiers: Qualified Codes: B20 - Human immunodeficiency virus [HIV] disease (2) IVDU (intravenous drug user) ICD Codes: F19.90 - Other psychoactive substance use, unspecified, uncomplicated SNOMED: 753738370 (3) Cellulitis of right upper extremity Assessment & Plan: arm evaluated patient admits to IVDA but in left arm states has not used right arm for drugs recently used in past cellulitis and edema but no abscess noted. no significant trauma noted. no wound labs noted micro pending no acute surgical intervention planned will monitor arm elevate arm cont IV ABx as per ID thank you will follow with recs ICD Codes: L03.113 - Cellulitis of right upper limb SNOMED: 327076967 Liborio Mccoy Nov 21, 2018 15:10
[2018-11-21 16:00] VITALS: BP 120/74
[2018-11-21] MEDS ORDERED: NS 275ml ONE (18:07)
[2018-11-21] MEDS ORDERED: Tubing IV Secondary IV ONE (18:07)
[2018-11-21] MEDS: Vancomycin 1gm/D5W 275ml IVPB SCH ×2 (18:12)
--- NOTE | 2018-11-21 18:40 | NUR ---
NURSE NOTES: UNEVENTFUL DAY. PATIENT WITH C/O RUE PAIN AND REQUIRING PAIN MEDS ORDERED.
--- NOTE | 2018-11-21 19:00 | Consultation ---
DATE OF CONSULTATION: 11/20/2018 INFECTIOUS DISEASE CONSULTATION CONSULTING PHYSICIAN: Prisca June M.D. ATTENDING PHYSICIAN: Vinicius Gallagher M.D. REFERRING PHYSICIAN: Vinicius Gallagher M.D. REASON FOR CONSULTATION: Right arm and hand cellulitis, rule out abscess and mild leukocytosis. CHIEF COMPLAINT: The patient's chief complaint coming into the hospital is right arm and hand cellulitis. HISTORY OF PRESENT ILLNESS: This is a 48-year-old male with history of IV drug abuse, also history of HIV and hepatitis C. The patient presents to [facility] with right arm and hand swelling likely with cellulitis, mild leukocytosis, and fevers. Infectious Disease consultation is requested for antibiotic management. I saw the patient and placed him on Vanco and cefepime. REVIEW OF SYSTEMS: Main issue is right arm and hand swelling and cellulitis and pain, fevers, and chills.HEAD AND NECK: No head pain or neck pain. CARDIAC: No chest pain. GASTROINTESTINAL: No nausea or diarrhea. GENITOURINARY: No dysuria or frequency. PULMONARY: No congestion or shortness of breath. PAST MEDICAL HISTORY: The patient has past medical history of HIV and he is not on antiviral therapy. He has history of IV drug abuse or history of hepatitis C. No history of diabetes or hypertension. ALLERGIES: Include abacavir and lamotrigine. FAMILY HISTORY: Noncontributory. SOCIAL HISTORY: Positive for IV drug abuse. No history of ETOH abuse. I am not clear about smoking history. No history of smoking or alcohol abuse to my knowledge. MEDICATIONS: Upon the MAR, the patient is on following medications. He is on Vanco. I put him on cefepime. He is on Restoril, Colace, Tylenol, morphine. He is on MiraLAX, Zofran, lorazepam, diphenhydramine, IV fluids, bisacodyl. Again antibiotics Vanco, cefepime, Zofran, Cepacol, . Outside medications noted and reconciliated. PHYSICAL EXAMINATION: VITAL SIGNS: The patient's T-max is 101.2, pulse rate 123, respiratory rate 20, blood pressure 123/82, saturation 96%. GENERAL: He is alert and oriented x3. No acute distress. HEAD AND NECK: Oral exam, no thrush. Eye exam, no icterus. Normocephalic. Neck is supple. HEART: Regular. No gallop or murmur. No friction rub. ABDOMEN: Soft. Positive bowel sounds. Nontender. LUNGS: Clear bilaterally. No rhonchi or rales. SKIN: No rash. MUSCULOSKELETAL: No septic arthritis. EXTREMITIES: Lower extremities without cellulitis. Right arm has significant redness, swelling of the right arm and hand. . GENITOURINARY: No Reddy. LINE SITES: Without phlebitis. NEUROLOGIC: Intact. LABORATORY DATA: The patient's white count 9.7, hemoglobin 12.7, platelet count is 263. Creatinine is 0.9. LFTs were noted. Blood cultures are pending. CD4 viral load was ordered. Viral load is pending. ASSESSMENT AND PLAN: 1. The patient has severe right arm and hand cellulitis, rule out underlying abscess with sepsis, fevers, leukocytosis. Continue Vanco and cefepime. I would cover for MRSA and Pseudomonas with history of IV drug abuse. Check blood cultures. Watch the patient clinically. Continue Vanco and cefepime for right arm and hand cellulitis for now. The patient also be seen by Surgery. 2. HIV. He is not on antiviral therapy. Check CD4 and viral load. The patient will need to follow up with the HIV physician to get genotyping and start on antiretroviral therapy. 3. Hepatitis C. The patient to get genotyping and viral load as an outpatient. Start antiviral therapy for hepatitis C by hepatitis C physician. 4. IV drug abuse. 5. No diabetes history or hypertension. 6. Allergies to abacavir and lamotrigine. 7. Social history positive for IV drug abuse. 8. Family history noncontributory. 9. MAR was noted. 10. Case was discussed with RN. 11. Continue treatments per primary consultants. Prisca June M.D. DR: DOROTHY JOB#: [id number] CC:
--- NOTE | 2018-11-21 19:33 | NUR ---
HAND-OFF: Report given to GABRIEL VARELA RN.
--- NOTE | 2018-11-21 19:34 | NUR ---
NURSE NOTES: Received report & pt from LYNETTE Gamez. Pt lying in bed, a&ox4, in room air. No s/s of acute distress & no c/o pain at this time. Right hand with optifoam. IV site intact with IVF running as ordered. Bed in lowest position, call light within reach. Will continue to monitor.
[2018-11-21 20:00] VITALS: BP 131/70
[2018-11-22] VITALS: BP 117/68
[2018-11-22] MEDS: Vancomycin 1gm/D5W 275ml IVPB SCH ×6 (00:20→17:26)
--- NOTE | 2018-11-22 00:28 | Infectious Diseases Prog Note ---
Assessment/Plan Assessment/Plan Full consult to be dictated: A) 1) right arm/hand cellulitis, sepsis, fevers with gram + bacteremia 2) hiv - not on anti-retroviral therapy 3) ivda 4) hep c P) 1) vancomycin and cefepime 2) check cultures final, check echo 3) surgical evaluation noted 4) check cd4/t-cell count and viral load 5) patient will need to follow up with primary hiv and hep c providers as outpatient for genotyping and tx 6) thank you Subjective HEENT: Denies: congestion Respiratory: Denies: shortness of breath Cardiovascular: Denies: chest pain Gastrointestinal/Abdominal: Denies: nausea, vomiting, diarrhea Genitourinary: Denies: dysuria Allergies: Coded Allergies: ABACAVIR (Verified Allergy, Severe, Shortness of Breath, 11/19/18) LAMOTRIGINE (Verified Allergy, Unknown, 11/19/18) Objective Vital Signs Last 24 Hour Vital Signs Date Time Temp Pulse Resp B/P (MAP) Pulse Ox O2 Delivery O2 Flow Rate FiO2 11/21/18 21:00 Room Air 11/21/18 20:00 99.0 115 18 131/70 (90) 95 11/21/18 18:35 98.1 11/21/18 16:00 98.1 116 19 120/74 (89) 99 11/21/18 12:00 98.8 105 19 138/80 (99) 99 11/21/18 09:00 Room Air 11/21/18 08:00 99.2 109 19 132/86 (101) 100 11/21/18 04:00 99.2 111 20 124/85 (98) 96 Height (Feet): 6 Height (Inches): 5.00 Weight (Pounds): 220 General Appearance: no acute distress HEENT: normocephalic Respiratory/Chest: lungs clear, normal breath sounds, no respiratory distress, no accessory muscle use Cardiovascular: normal rate, regular rhythm Abdomen: normal bowel sounds, soft, non tender, no organomegaly Microbiology Date/Time Source Procedure Growth Status 11/19/18 22:45 Blood Blood Culture - Preliminary Resulted 11/19/18 22:30 Blood Blood Culture - Preliminary Resulted Laboratory Tests Test 11/21/18 07:15 11/21/18 08:00 Sodium Level 132 MMOL/L (136-145) L Potassium Level 4.1 MMOL/L (3.5-5.1) Chloride Level 98 MMOL/L (98-107) Carbon Dioxide Level 27 MMOL/L (21-32) Anion Gap 7 mmol/L (5-15) Blood Urea Nitrogen 9 mg/dL (7-18) Creatinine 0.9 MG/DL (0.55-1.30) Estimat Glomerular Filtration Rate > 60 mL/min (>60) Glucose Level 88 MG/DL (74-106) Calcium Level 8.5 MG/DL (8.5-10.1) Magnesium Level 1.7 MG/DL (1.8-2.4) L White Blood Count 9.6 K/UL (4.8-10.8) Red Blood Count 5.57 M/UL (4.70-6.10) Hemoglobin 14.3 G/DL (14.2-18.0) Hematocrit 44.1 % (42.0-52.0) Mean Corpuscular Volume 79 FL (80-99) L Mean Corpuscular Hemoglobin 25.6 PG (27.0-31.0) L Mean Corpuscular Hemoglobin Concent 32.3 G/DL (32.0-36.0) Red Cell Distribution Width 14.7 % (11.6-14.8) Platelet Count 263 K/UL (150-450) Mean Platelet Volume 5.8 FL (6.5-10.1) L Neutrophils (%) (Auto) 62.1 % (45.0-75.0) Lymphocytes (%) (Auto) 25.1 % (20.0-45.0) Monocytes (%) (Auto) 7.6 % (1.0-10.0) Eosinophils (%) (Auto) 3.7 % (0.0-3.0) H Basophils (%) (Auto) 1.3 % (0.0-2.0) Vancomycin Level Trough 9.3 ug/mL (5.0-12.0) Current Medications Medications (Trade) Dose Ordered Sig/Macarena Route PRN Reason Start Time Stop Time Status Last Admin Dose Admin Acetaminophen (Tylenol) 650 mg Q4H PRN ORAL Mild Pain (Pain Scale 1-3) 11/20/18 10:30 12/20/18 10:29 11/20/18 11:00 Acetaminophen (Tylenol) 650 mg Q4H PRN ORAL T>100.5 11/20/18 10:30 12/20/18 10:29 Al Hydroxide/Mg Hydroxide (Mylanta II) 30 ml Q6H PRN ORAL dyspepsia 11/20/18 10:30 12/20/18 10:29 Bisacodyl (Dulcolax) 10 mg HSPRN PRN RECTAL Constipation 11/20/18 10:30 12/20/18 10:29 Cefepime HCl 2 gm/ Dextrose 100 ml @ 200 mls/hr Q12HR IVPB 11/20/18 21:00 11/27/18 20:59 11/21/18 21:20 Cetylpyridinium Chloride (Cepacol) 1 lozg Q2H PRN LUCIO For Pain 11/20/18 01:15 12/20/18 01:14 11/20/18 01:52 Dextrose (Dextrose 50%) 25 ml Q30M PRN IV Hypoglycemia 11/20/18 10:30 12/20/18 10:29 Dextrose (Dextrose 50%) 50 ml Q30M PRN IV Hypoglycemia 11/20/18 10:30 12/20/18 10:29 Diphenhydramine HCl (Benadryl) 25 mg Q6H PRN ORAL Itching/Pruritis 11/20/18 10:30 12/20/18 10:29 Docusate Sodium (Colace) 100 mg EVERY 12 HOURS ORAL 11/20/18 21:00 12/20/18 20:59 11/21/18 21:20 Guaifenesin/ Codeine Phosphate (Robitussin with codeine) 5 ml Q6H PRN ORAL For Cough 11/20/18 01:15 12/20/18 01:14 11/20/18 02:51 Heparin Sodium (Porcine) (Heparin 5000 units/ml) 5,000 units EVERY 8 HOURS SUBQ 11/20/18 14:00 12/20/18 13:59 11/21/18 21:22 Lorazepam (Ativan 2mg/ml 1ml) 0.5 mg Q4H PRN IV For Anxiety 11/20/18 10:30 11/27/18 10:29 Magnesium Hydroxide (Mom) 30 ml HSPRN PRN ORAL Constipation 11/20/18 10:30 12/20/18 10:29 Morphine Sulfate (Morphine Sulfate) 2 mg Q4H PRN IVP Moderate Pain (Pain Scale 4-6) 11/20/18 10:30 11/27/18 10:29 11/21/18 21:21 Morphine Sulfate (Morphine Sulfate) 4 mg Q4H PRN IVP Severe Pain (Pain Scale 7-10) 11/20/18 10:30 11/27/18 10:29 11/21/18 18:05 Ondansetron HCl (Zofran) 4 mg Q6H PRN IVP Nausea & Vomiting 11/20/18 10:30 12/20/18 10:29 Phenol/Menthol (Chloraseptic) 1 spray Q3H PRN ORAL For Pain 11/20/18 01:15 12/20/18 01:14 11/20/18 16:07 Polyethylene Glycol (Miralax) 17 gm HSPRN PRN ORAL Constipation 11/20/18 10:30 12/20/18 10:29 Sodium Chloride 1,000 ml @ 125 mls/hr Q8H IVLG 11/20/18 11:00 12/20/18 10:59 11/21/18 13:58 Temazepam (Restoril) 15 mg HSPRN PRN ORAL Insomnia 11/20/18 21:00 11/27/18 20:59 Vancomycin HCl (Vanco rx to dose) 1 ea DAILY PRN MISC . 11/21/18 09:45 12/21/18 09:44 Vancomycin HCl 1 gm/Dextrose 275 ml @ 183.708 mls/hr Q8H IVPB 11/21/18 17:00 11/26/18 16:59 11/22/18 00:20 Prisca June MD Nov 22, 2018 00:28
[2018-11-22] MEDS: Bactrim-DS 1 tab ORAL SCH ×2 (00:48→23:52)
[2018-11-22] MEDS: Morphine Sulfate 4mg/ml Inj (IV USE ONLY) IVP PRN ×6 (01:23→21:23)
[2018-11-22 04:00] VITALS: BP 120/71
--- NOTE | 2018-11-22 04:53 | NUR ---
NURSE NOTES: Henry from [employer] called to inform RN that pt is positive for MRSA of the nares. Charge nurse made aware.
[2018-11-22] MEDS: Heparin 5000 units/ml inj SUBQ SCH ×3 (05:22→21:24)
--- NOTE | 2018-11-22 05:30 | NUR ---
NURSE NOTES: Right thumb dressing changed.
--- NOTE | 2018-11-22 06:55 | NUR ---
TRANSFER TO FLOOR: Pt transferred to [facility]-2. All belongings checked with receiving RN. Gave report to LYNETTE Solis. Pt instable condition.
--- NOTE | 2018-11-22 06:55 | NUR ---
NURSE NOTES: Pt is transferred from [facility] room 308 to [facility] room 419-2 in stable condition.Report received from LYNETTE Leung. Pt is awake and alert. No acute distress noted. Right hand cellulitis site dressing dry and intact. NS running at 125ml/hr. Pt's belongings verified with patient and transferring nurse Xochitl. Pt refused to turn over belongings for safekeeping. Belongings at bedside. Pt oriented to the unit. Bed locked low in position,side rails up and call light within reach. Pt instructed to call for assistance before getting out unit. Pt will be monitored.
--- NOTE | 2018-11-22 07:20 | NUR ---
HAND-OFF: Report given to LYNETTE Rudolph.
[2018-11-22 07:29] LABS: BASOPHILS % (AUTO) 1.3 % (0.0-2.0); EOSINOPHILS % (AUTO) 8.3 % (0.0-3.0); HEMATOCRIT 37.4 % (42.0-52.0); HEMOGLOBIN 12.5 G/DL (14.2-18.0); LYMPHOCYTES % (AUTO) 25.5 % (20.0-45.0); MEAN CORPUSCULAR VOLUME 79 FL (80-99); MONOCYTES % (AUTO) 10.6 % (1.0-10.0); NEUTROPHILS % (AUTO) 54.3 % (45.0-75.0); PLATELET COUNT 235 K/UL (150-450); RED BLOOD COUNT 4.76 M/UL (4.70-6.10); RED CELL DISTRIBUTION WIDTH 14.5 % (11.6-14.8); WHITE BLOOD COUNT 6.1 K/UL (4.8-10.8)
[2018-11-22 07:54] LABS: ANION GAP 9 mmol/L (5-15); BLOOD UREA NITROGEN 9 mg/dL (7-18); CALCIUM 8.3 MG/DL (8.5-10.1); CARBON DIOXIDE 27 MMOL/L (21-32); CHLORIDE 101 MMOL/L (98-107); CREATININE 0.8 MG/DL (0.55-1.30); POTASSIUM 4.4 MMOL/L (3.5-5.1); SODIUM 136 MMOL/L (136-145)
[2018-11-22 08:00] VITALS: BP 126/76
[2018-11-22] MEDS: Docusate 100mg cap ORAL SCH ×2 (09:00→20:57)
--- NOTE | 2018-11-22 10:10 | NUR ---
NURSE NOTES: pt in bed with no sob nor in any form of distress noted. breathing regular and unlabored. pain med given as ordered. new iv site obtained. will continue to monitor
[2018-11-22 12:00] VITALS: BP 110/67
--- NOTE | 2018-11-22 13:36 | General Progress Note ---
Assessment/Plan Assessment/Plan: 48 y/o man with HIV pos, presents with RUE cellulitis with poss abscess, with hx of recent IVDA. #RUE Cellulitis, r/o abscess - Cont broad spectrum IV abx - ID consultation noted, cefepime added - f/u cultures- now with blood cx growing staph aureus, await sensi - f/u echo to r/o endocarditis - Pain control - Surgical consult to r/o underlying abscess noted, no intervention rec #HIV disease #Hep C pos #IVDA - Monitor for withdrawal symptoms - Check CD4 count - ID evaluation noted, pt not on any HIV medications, will likely need better outpt followup Subjective Date patient seen: Nov 22, 2018 Time patient seen: 13:35 ROS Limited/Unobtainable: No Allergies: Coded Allergies: ABACAVIR (Verified Allergy, Severe, Shortness of Breath, 11/19/18) LAMOTRIGINE (Verified Allergy, Unknown, 11/19/18) Subjective Still with RUE pain, and redness. denied fevers/chills. Seen by surgery without rec for surgical intervention Objective Last 24 Hour Vital Signs Date Time Temp Pulse Resp B/P (MAP) Pulse Ox O2 Delivery O2 Flow Rate FiO2 11/22/18 12:00 97.2 93 16 110/67 (81) 99 11/22/18 09:44 98.6 11/22/18 09:34 Room Air 11/22/18 08:00 98.6 101 16 126/76 (93) 99 11/22/18 04:00 98.1 109 16 120/71 (87) 96 11/22/18 00:00 98.3 111 17 117/68 (84) 97 11/21/18 21:00 Room Air 11/21/18 20:00 99.0 115 18 131/70 (90) 95 11/21/18 16:00 98.1 116 19 120/74 (89) 99 Intake and Output 11/21/18 11/22/18 19:00 07:00 Intake Total 2910.0 ml 2693.708 ml Output Total 950 ml Balance 1960.0 ml 2693.708 ml Intake Oral 960 ml 1760 ml IV Total 1950.0 ml 933.708 ml Output Urine Total 950 ml # Voids 3 # Bowel Movements 2 Laboratory Tests 11/22/18 05:00: White Blood Count 6.1, Red Blood Count 4.76, Hemoglobin 12.5L, Hematocrit 37.4L , Mean Corpuscular Volume 79L, Mean Corpuscular Hemoglobin 26.2L, Mean Corpuscular Hemoglobin Concent 33.4, Red Cell Distribution Width 14.5, Platelet Count 235, Mean Platelet Volume 5.8L, Neutrophils (%) (Auto) 54.3, Lymphocytes ( %) (Auto) 25.5, Monocytes (%) (Auto) 10.6H, Eosinophils (%) (Auto) 8.3H, Basophils (%) (Auto) 1.3, Sodium Level 136, Potassium Level 4.4, Chloride Level 101, Carbon Dioxide Level 27, Anion Gap 9, Blood Urea Nitrogen 9, Creatinine 0.8 , Estimat Glomerular Filtration Rate > 60, Glucose Level 102, Calcium Level 8.3L Height (Feet): 6 Height (Inches): 5.00 Weight (Pounds): 220 Objective General: alert, cooperative, no distress, appears stated age Head: normocephalic, without obvious abnormality, atraumatic Eyes: conjunctivae/corneas clear. PERRL, EOM's intact Throat: lips, mucosa, and tongue normal. MMM Neck: supple, symmetrical, trachea midline, and no JVD Lungs: clear to auscultation bilaterally Heart: regular rate and rhythm, S1, S2 normal, no murmur, click, rub or gallop Abdomen: soft, non-tender, non-distended, bowel sounds normal; no masses or organomegaly Extremities: RUE erythema/warmth over antecubital fossa, some edema, redness appears to have spread to forearm Pulses: 2+ and symmetric Skin: multiple pustules all over skin, mostly in extremities, likely from IVDU Neurologic: grossly normal, no focal deficits Vinicius Gallagher MD Nov 22, 2018 13:36
--- NOTE | 2018-11-22 15:10 | NUR ---
CASE MANAGEMENT: REVIEW 11/22/2018 SI:RIGHT UPPER EXTREMITY CELLULITES. T 98.3 HR 111 RR 17 B/P 117/68 SATS 97% ON RA CA 8.3 IS: IVF @ 125 mL/HR CEFEPIME IV Q12H VANCO IV Q8H MED/SURG STATUS DCP: PATIENT TO BE DISCHARGED TO HOME ONCE MEDICALLY CLEARED.
[2018-11-22 16:00] VITALS: BP 99/62
--- NOTE | 2018-11-22 16:56 | Surgery Progress Note ---
Surgery Progress Note Subjective Additional Comments afebrile, HD stable, labs noted, micro with staph bacteremia exam stable Objective Last 24 Hour Vital Signs Date Time Temp Pulse Resp B/P (MAP) Pulse Ox O2 Delivery O2 Flow Rate FiO2 11/22/18 16:00 97.3 61 19 99/62 (74) 99 11/22/18 13:50 97.2 11/22/18 12:00 97.2 93 16 110/67 (81) 99 11/22/18 09:34 Room Air 11/22/18 08:00 98.6 101 16 126/76 (93) 99 11/22/18 04:00 98.1 109 16 120/71 (87) 96 11/22/18 00:00 98.3 111 17 117/68 (84) 97 11/21/18 21:00 Room Air 11/21/18 20:00 99.0 115 18 131/70 (90) 95 I&O Intake and Output 11/21/18 11/22/18 19:00 07:00 Intake Total 2910.0 ml 2693.708 ml Output Total 950 ml Balance 1960.0 ml 2693.708 ml Intake Oral 960 ml 1760 ml IV Total 1950.0 ml 933.708 ml Output Urine Total 950 ml # Voids 3 # Bowel Movements 2 Dressing: dry Drains: none Cardiovascular: RSR Respiratory: clear Abdomen: soft, flat, non-tender, present bowel sounds Extremities: edema, tenderness, no cyanosis Laboratory Tests Test 11/22/18 05:00 11/22/18 16:44 White Blood Count 6.1 K/UL (4.8-10.8) Red Blood Count 4.76 M/UL (4.70-6.10) Hemoglobin 12.5 G/DL (14.2-18.0) L Hematocrit 37.4 % (42.0-52.0) L Mean Corpuscular Volume 79 FL (80-99) L Mean Corpuscular Hemoglobin 26.2 PG (27.0-31.0) L Mean Corpuscular Hemoglobin Concent 33.4 G/DL (32.0-36.0) Red Cell Distribution Width 14.5 % (11.6-14.8) Platelet Count 235 K/UL (150-450) Mean Platelet Volume 5.8 FL (6.5-10.1) L Neutrophils (%) (Auto) 54.3 % (45.0-75.0) Lymphocytes (%) (Auto) 25.5 % (20.0-45.0) Monocytes (%) (Auto) 10.6 % (1.0-10.0) H Eosinophils (%) (Auto) 8.3 % (0.0-3.0) H Basophils (%) (Auto) 1.3 % (0.0-2.0) Sodium Level 136 MMOL/L (136-145) Potassium Level 4.4 MMOL/L (3.5-5.1) Chloride Level 101 MMOL/L (98-107) Carbon Dioxide Level 27 MMOL/L (21-32) Anion Gap 9 mmol/L (5-15) Blood Urea Nitrogen 9 mg/dL (7-18) Creatinine 0.8 MG/DL (0.55-1.30) Estimat Glomerular Filtration Rate > 60 mL/min (>60) Glucose Level 102 MG/DL (74-106) Calcium Level 8.3 MG/DL (8.5-10.1) L Vancomycin Level Trough Pending Plan Problems: (1) HIV (human immunodeficiency virus infection) (2) IVDU (intravenous drug user) (3) Cellulitis of right upper extremity Assessment & Plan: arm evaluated patient admits to IVDA but in left arm states has not used right arm for drugs recently used in past cellulitis and edema but no abscess noted. no significant trauma noted. no wound labs noted micro w/ staph bacteremia no acute surgical intervention planned will monitor arm elevate arm cont IV ABx as per ID thank you will follow with Liborio Lara Nov 22, 2018 16:56
[2018-11-22] MEDS: Vancomycin 1.25gm Premix IVPB SCH (18:10)
--- NOTE | 2018-11-22 18:38 | Infectious Diseases Prog Note ---
Assessment/Plan Assessment/Plan ASSESSMENT AND PLAN: 1. right arm/hand cellulitis, staph aureus bacteremia, sepsis, mrsa colonization , fevers, leukocytosis, ivda - vancomycin - day # 3 antibiotics, will need at least 2 weeks iv abx and 4 weeks total abx - check surveillance blood cultures, monitor labs - TTE without vegetation per report - clinically improved 2. HIV/AIDS - cd4 - 155 - patient will need outpatient genotyping and anti- retroviral tx with primary HIV MD, bactrim prophylaxis started 3. Hepatitis C. The patient to get genotyping and viral load as an outpatient. Start antiviral therapy for hepatitis C by hepatitis C physician. 4. IV drug abuse. 5. No diabetes history or hypertension. 6. Allergies to abacavir and lamotrigine. 7. Social history positive for IV drug abuse. 8. Family history noncontributory. 9. MAR was noted. 10. Case was discussed with RN. 11. Continue treatments per primary consultants. Subjective Constitutional: Denies: fever HEENT: Denies: congestion Respiratory: Denies: shortness of breath Cardiovascular: Denies: chest pain Gastrointestinal/Abdominal: Denies: nausea, vomiting, diarrhea Genitourinary: Denies: dysuria, hematuria Neurologic: Denies: headache Psychiatric: Denies: depression Skin: Denies: rash Hematologic: Denies: bleeding Musculoskeletal: Denies: pain Allergies: Coded Allergies: ABACAVIR (Verified Allergy, Severe, Shortness of Breath, 11/19/18) LAMOTRIGINE (Verified Allergy, Unknown, 11/19/18) Objective Vital Signs Last 24 Hour Vital Signs Date Time Temp Pulse Resp B/P (MAP) Pulse Ox O2 Delivery O2 Flow Rate FiO2 11/22/18 17:58 97.2 11/22/18 17:04 97.2 11/22/18 16:00 97.3 61 19 99/62 (74) 99 11/22/18 12:00 97.2 93 16 110/67 (81) 99 11/22/18 09:34 Room Air 11/22/18 08:00 98.6 101 16 126/76 (93) 99 11/22/18 04:00 98.1 109 16 120/71 (87) 96 11/22/18 00:00 98.3 111 17 117/68 (84) 97 11/21/18 21:00 Room Air 11/21/18 20:00 99.0 115 18 131/70 (90) 95 Height (Feet): 6 Height (Inches): 5.00 Weight (Pounds): 220 General Appearance: no acute distress HEENT: normocephalic, atraumatic, anicteric, mucous membranes moist Respiratory/Chest: lungs clear, normal breath sounds, no respiratory distress, no accessory muscle use Cardiovascular: normal rate, regular rhythm, no gallop/murmur, no JVD Abdomen: normal bowel sounds, soft, non tender, no organomegaly, non distended Genitourinary: other - no tellez Extremities: no cyanosis, other - less right arm swelling and redness/warmth Skin: no rash 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, alert Lymphatic: no neck adenopathy Musculoskeletal: no effusion Objective echo - no vegetation, report noted Microbiology Date/Time Source Procedure Growth Status 11/19/18 22:45 Blood Blood Culture - Preliminary Staphylococcus Aureus Resulted 11/19/18 22:30 Blood Blood Culture - Preliminary Staphylococcus Aureus Resulted 11/20/18 05:00 Nasal Nares Right MRSA Culture - Final Staphylococcus Aureus - Mrsa Complete Laboratory Tests Test 11/22/18 05:00 11/22/18 16:44 White Blood Count 6.1 K/UL (4.8-10.8) Red Blood Count 4.76 M/UL (4.70-6.10) Hemoglobin 12.5 G/DL (14.2-18.0) L Hematocrit 37.4 % (42.0-52.0) L Mean Corpuscular Volume 79 FL (80-99) L Mean Corpuscular Hemoglobin 26.2 PG (27.0-31.0) L Mean Corpuscular Hemoglobin Concent 33.4 G/DL (32.0-36.0) Red Cell Distribution Width 14.5 % (11.6-14.8) Platelet Count 235 K/UL (150-450) Mean Platelet Volume 5.8 FL (6.5-10.1) L Neutrophils (%) (Auto) 54.3 % (45.0-75.0) Lymphocytes (%) (Auto) 25.5 % (20.0-45.0) Monocytes (%) (Auto) 10.6 % (1.0-10.0) H Eosinophils (%) (Auto) 8.3 % (0.0-3.0) H Basophils (%) (Auto) 1.3 % (0.0-2.0) Sodium Level 136 MMOL/L (136-145) Potassium Level 4.4 MMOL/L (3.5-5.1) Chloride Level 101 MMOL/L (98-107) Carbon Dioxide Level 27 MMOL/L (21-32) Anion Gap 9 mmol/L (5-15) Blood Urea Nitrogen 9 mg/dL (7-18) Creatinine 0.8 MG/DL (0.55-1.30) Estimat Glomerular Filtration Rate > 60 mL/min (>60) Glucose Level 102 MG/DL (74-106) Calcium Level 8.3 MG/DL (8.5-10.1) L Vancomycin Level Trough 10.7 ug/mL (5.0-12.0) Current Medications Medications (Trade) Dose Ordered Sig/Macarena Route PRN Reason Start Time Stop Time Status Last Admin Dose Admin Acetaminophen (Tylenol) 650 mg Q4H PRN ORAL Mild Pain (Pain Scale 1-3) 11/20/18 10:30 12/20/18 10:29 11/22/18 16:34 Acetaminophen (Tylenol) 650 mg Q4H PRN ORAL T>100.5 11/20/18 10:30 12/20/18 10:29 Al Hydroxide/Mg Hydroxide (Mylanta II) 30 ml Q6H PRN ORAL dyspepsia 11/20/18 10:30 12/20/18 10:29 Bisacodyl (Dulcolax) 10 mg HSPRN PRN RECTAL Constipation 11/20/18 10:30 12/20/18 10:29 Cefepime HCl 2 gm/ Dextrose 100 ml @ 200 mls/hr Q12HR IVPB 11/20/18 21:00 11/27/18 20:59 11/22/18 09:10 Cetylpyridinium Chloride (Cepacol) 1 lozg Q2H PRN LUCIO For Pain 11/20/18 01:15 12/20/18 01:14 11/20/18 01:52 Dextrose (Dextrose 50%) 25 ml Q30M PRN IV Hypoglycemia 11/20/18 10:30 12/20/18 10:29 Dextrose (Dextrose 50%) 50 ml Q30M PRN IV Hypoglycemia 11/20/18 10:30 12/20/18 10:29 Diphenhydramine HCl (Benadryl) 25 mg Q6H PRN ORAL Itching/Pruritis 11/20/18 10:30 12/20/18 10:29 Docusate Sodium (Colace) 100 mg EVERY 12 HOURS ORAL 11/20/18 21:00 12/20/18 20:59 11/21/18 21:20 Guaifenesin/ Codeine Phosphate (Robitussin with codeine) 5 ml Q6H PRN ORAL For Cough 11/20/18 01:15 12/20/18 01:14 11/20/18 02:51 Heparin Sodium (Porcine) (Heparin 5000 units/ml) 5,000 units EVERY 8 HOURS SUBQ 11/20/18 14:00 12/20/18 13:59 11/22/18 13:22 Lorazepam (Ativan 2mg/ml 1ml) 0.5 mg Q4H PRN IV For Anxiety 11/20/18 10:30 11/27/18 10:29 Magnesium Hydroxide (Mom) 30 ml HSPRN PRN ORAL Constipation 11/20/18 10:30 12/20/18 10:29 Morphine Sulfate (Morphine Sulfate) 2 mg Q4H PRN IVP Moderate Pain (Pain Scale 4-6) 11/20/18 10:30 11/27/18 10:29 11/21/18 21:21 Morphine Sulfate (Morphine Sulfate) 4 mg Q4H PRN IVP Severe Pain (Pain Scale 7-10) 11/20/18 10:30 11/27/18 10:29 11/22/18 17:28 Ondansetron HCl (Zofran) 4 mg Q6H PRN IVP Nausea & Vomiting 11/20/18 10:30 12/20/18 10:29 Phenol/Menthol (Chloraseptic) 1 spray Q3H PRN ORAL For Pain 11/20/18 01:15 12/20/18 01:14 11/20/18 16:07 Polyethylene Glycol (Miralax) 17 gm HSPRN PRN ORAL Constipation 11/20/18 10:30 12/20/18 10:29 Temazepam (Restoril) 15 mg HSPRN PRN ORAL Insomnia 11/20/18 21:00 11/27/18 20:59 Trimethoprim/ Sulfamethoxazole (Bactrim-DS) 1 tab Q24HRS ORAL 11/22/18 00:30 11/29/18 00:29 11/22/18 00:48 Vancomycin HCl (Vanco rx to dose) 1 ea DAILY PRN MISC . 11/21/18 09:45 12/21/18 09:44 Vancomycin HCl/ Dextrose 275 ml @ 183.333 mls/hr Q8H IVPB 11/22/18 18:00 11/27/18 17:59 11/22/18 18:10 Prisca June MD Nov 22, 2018 18:38
--- NOTE | 2018-11-22 19:29 | NUR ---
HAND-OFF: Report given to LYNETTE Roe.
--- NOTE | 2018-11-22 19:52 | NUR ---
NURSE NOTES: PATIENT ASLEEP IN BED. ON RA, NO SOB, NO ACUTE DISTRESS, LFA IV INTACT, PATENT, RUNNING ABX. 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 BED IN LOWEST POSITION, LOCKED, ALARMS ON. CALL LIGHT IN REACH.
[2018-11-22 20:00] VITALS: BP 117/85
[2018-11-23] VITALS: BP 118/77
[2018-11-23] MEDS: Vancomycin 1.25gm Premix IVPB SCH ×3 (02:11→18:02)
[2018-11-23] MEDS: Morphine Sulfate 4mg/ml Inj (IV USE ONLY) IVP PRN ×5 (02:11→21:17)
[2018-11-23 04:00] VITALS: BP 108/69
--- NOTE | 2018-11-23 05:00 | NUR ---
NURSE NOTES: RECEIVED PHONE CALL FROM ANTHONY, PATIENT IS NOTED POSITIVE FOR MRSA BLOOD. UPDATED ISOLATION ASSESSMENT.
[2018-11-23] MEDS: Heparin 5000 units/ml inj SUBQ SCH ×3 (06:17→21:18)
[2018-11-23 08:00] VITALS: BP 110/71
[2018-11-23] MEDS: Docusate 100mg cap ORAL SCH ×2 (08:16→21:00)
[2018-11-23 09:23] LABS: BASOPHILS % (AUTO) 1.3 % (0.0-2.0); EOSINOPHILS % (AUTO) 10.6 % (0.0-3.0); HEMATOCRIT 38.8 % (42.0-52.0); HEMOGLOBIN 12.7 G/DL (14.2-18.0); LYMPHOCYTES % (AUTO) 27.7 % (20.0-45.0); MEAN CORPUSCULAR VOLUME 79 FL (80-99); MONOCYTES % (AUTO) 7.5 % (1.0-10.0); NEUTROPHILS % (AUTO) 52.9 % (45.0-75.0); PLATELET COUNT 300 K/UL (150-450); RED BLOOD COUNT 4.92 M/UL (4.70-6.10); RED CELL DISTRIBUTION WIDTH 14.7 % (11.6-14.8); WHITE BLOOD COUNT 6.2 K/UL (4.8-10.8)
[2018-11-23 09:34] LABS: ANION GAP 8 mmol/L (5-15); BLOOD UREA NITROGEN 11 mg/dL (7-18); CALCIUM 8.9 MG/DL (8.5-10.1); CARBON DIOXIDE 28 MMOL/L (21-32); CHLORIDE 97 MMOL/L (98-107); POTASSIUM 4.5 MMOL/L (3.5-5.1); SODIUM 133 MMOL/L (136-145)
--- NOTE | 2018-11-23 11:19 | Cardiology Report ---
APPROVED REPORT EXAM: Two-dimensional and M-mode echocardiogram with Doppler and color Doppler. INDICATION Vegetation M-Mode DIMENSIONS IVSd1.4 (0.7-1.1cm)Left Atrium (MM)3.3 (1.6-4.0cm) LVDd4.7 (3.5-5.6cm)Aortic Root2.9 (2.0-3.7cm) PWd1.1 (0.7-1.1cm)Aortic Cusp Exc.1.9 (1.5-2.0cm) LVDs2.3 (2.5-4.0cm) PWs1.9 cm Normal left ventricular chamber size, systolic function and wall motion. Left ventricular ejection fraction estimated to be 55 %. Mild left ventricular hypertrophy. No evidence of pericardial effusion. All other cardiac chamber sizes are within normal limits. Normal appearing aortic, mitral,and tricuspid valves. Mild mitral annulus and aortic root calcification. Pulmonic valve not visualized. IVC is normal in size with physiological collapse. No discrete vegetations seen. A color flow and spectral Doppler study was performed and revealed: No aortic regurgitation. No mitral regurgitation. Normal left ventricular diastolic function. Trace tricuspid regurgitation. pulmonic regurgitation present.
[2018-11-23 12:00] VITALS: BP 118/77
--- NOTE | 2018-11-23 13:42 | Surgery Progress Note ---
Surgery Progress Note Subjective Additional Comments No acute overnight events. Afebrile, hemodynamically stable. States still has pain in the right upper extremity but edema and cellulitis improved. More range of motion. No nausea vomiting fever chills Objective Last 24 Hour Vital Signs Date Time Temp Pulse Resp B/P (MAP) Pulse Ox O2 Delivery O2 Flow Rate FiO2 11/23/18 11:32 99.2 11/23/18 09:00 Room Air 11/23/18 08:00 98.9 90 18 110/71 (84) 97 11/23/18 04:00 99.2 95 18 108/69 (82) 96 11/23/18 00:00 98.4 89 18 118/77 (91) 99 11/22/18 21:00 Room Air 11/22/18 20:00 98.0 96 18 117/85 (96) 96 11/22/18 17:04 97.2 11/22/18 16:00 97.3 61 19 99/62 (74) 99 I&O Intake and Output 11/22/18 11/23/18 19:00 07:00 Intake Total 1635.000 ml 450 ml Balance 1635.000 ml 450 ml Intake Oral 1260 ml 450 ml IV Total 375.000 ml # Voids 2 3 Dressing: dry Wound: clean Drains: none Cardiovascular: RSR Respiratory: clear Abdomen: soft, flat, present bowel sounds Extremities: edema, tenderness, no cyanosis Laboratory Tests Test 11/22/18 16:44 11/23/18 09:02 Vancomycin Level Trough 10.7 ug/mL (5.0-12.0) White Blood Count 6.2 K/UL (4.8-10.8) Red Blood Count 4.92 M/UL (4.70-6.10) Hemoglobin 12.7 G/DL (14.2-18.0) L Hematocrit 38.8 % (42.0-52.0) L Mean Corpuscular Volume 79 FL (80-99) L Mean Corpuscular Hemoglobin 25.8 PG (27.0-31.0) L Mean Corpuscular Hemoglobin Concent 32.8 G/DL (32.0-36.0) Red Cell Distribution Width 14.7 % (11.6-14.8) Platelet Count 300 K/UL (150-450) Mean Platelet Volume 6.1 FL (6.5-10.1) L Neutrophils (%) (Auto) 52.9 % (45.0-75.0) Lymphocytes (%) (Auto) 27.7 % (20.0-45.0) Monocytes (%) (Auto) 7.5 % (1.0-10.0) Eosinophils (%) (Auto) 10.6 % (0.0-3.0) H Basophils (%) (Auto) 1.3 % (0.0-2.0) Sodium Level 133 MMOL/L (136-145) L Potassium Level 4.5 MMOL/L (3.5-5.1) Chloride Level 97 MMOL/L (98-107) L Carbon Dioxide Level 28 MMOL/L (21-32) Anion Gap 8 mmol/L (5-15) Blood Urea Nitrogen 11 mg/dL (7-18) Creatinine 1.0 MG/DL (0.55-1.30) Estimat Glomerular Filtration Rate > 60 mL/min (>60) Glucose Level 127 MG/DL (74-106) H Calcium Level 8.9 MG/DL (8.5-10.1) Plan Problems: (1) HIV (human immunodeficiency virus infection) (2) IVDU (intravenous drug user) (3) Cellulitis of right upper extremity Assessment & Plan: arm evaluated patient admits to IVDA but in left arm states has not used right arm for drugs recently used in past cellulitis and edema but no abscess noted. no significant trauma noted. no wound labs noted micro w/ staph bacteremia Potential for cellulitis and phlegmon to for an abscess. Now that resolving but not completely improved will order CT extremity to evaluate for possibility of underlying abscess. no acute surgical intervention planned will monitor arm elevate arm cont IV ABx as per ID thank you will follow with Liborio Lara Nov 23, 2018 13:41
--- NOTE | 2018-11-23 14:52 | General Progress Note ---
Assessment/Plan Assessment/Plan: 48 y/o man with HIV pos, presents with RUE cellulitis with poss abscess, with hx of recent IVDA. #RUE Cellulitis, r/o abscess - Cont broad spectrum IV abx - ID consultation noted, cefepime added - f/u cultures- now with blood cx growing staph aureus, await sensi - f/u echo to r/o endocarditis - Pain control - Surgical consult to r/o underlying abscess noted, no intervention rec #HIV disease #Hep C pos #IVDA - Monitor for withdrawal symptoms - Check CD4 count - ID evaluation noted, pt not on any HIV medications, will likely need better outpt followup Subjective Allergies: Coded Allergies: ABACAVIR (Verified Allergy, Severe, Shortness of Breath, 11/19/18) LAMOTRIGINE (Verified Allergy, Unknown, 11/19/18) Subjective Still with RUE pain, and redness. denied fevers/chills. Seen by surgery without rec for surgical intervention Objective Last 24 Hour Vital Signs Date Time Temp Pulse Resp B/P (MAP) Pulse Ox O2 Delivery O2 Flow Rate FiO2 11/23/18 11:32 99.2 11/23/18 09:00 Room Air 11/23/18 08:00 98.9 90 18 110/71 (84) 97 11/23/18 04:00 99.2 95 18 108/69 (82) 96 11/23/18 00:00 98.4 89 18 118/77 (91) 99 11/22/18 21:00 Room Air 11/22/18 20:00 98.0 96 18 117/85 (96) 96 11/22/18 17:04 97.2 11/22/18 16:00 97.3 61 19 99/62 (74) 99 Intake and Output 11/22/18 11/23/18 19:00 07:00 Intake Total 1635.000 ml 450 ml Balance 1635.000 ml 450 ml Intake Oral 1260 ml 450 ml IV Total 375.000 ml # Voids 2 3 Laboratory Tests 11/22/18 16:44: Vancomycin Level Trough 10.7 11/23/18 09:02: White Blood Count 6.2, Red Blood Count 4.92, Hemoglobin 12.7L, Hematocrit 38.8L , Mean Corpuscular Volume 79L, Mean Corpuscular Hemoglobin 25.8L, Mean Corpuscular Hemoglobin Concent 32.8, Red Cell Distribution Width 14.7, Platelet Count 300, Mean Platelet Volume 6.1L, Neutrophils (%) (Auto) 52.9, Lymphocytes ( %) (Auto) 27.7, Monocytes (%) (Auto) 7.5, Eosinophils (%) (Auto) 10.6H, Basophils (%) (Auto) 1.3, Sodium Level 133L, Potassium Level 4.5, Chloride Level 97L, Carbon Dioxide Level 28, Anion Gap 8, Blood Urea Nitrogen 11, Creatinine 1.0, Estimat Glomerular Filtration Rate > 60, Glucose Level 127H, Calcium Level 8.9 Height (Feet): 6 Height (Inches): 5.00 Weight (Pounds): 220 Objective General: alert, cooperative, no distress, appears stated age Head: normocephalic, without obvious abnormality, atraumatic Eyes: conjunctivae/corneas clear. PERRL, EOM's intact Throat: lips, mucosa, and tongue normal. MMM Neck: supple, symmetrical, trachea midline, and no JVD Lungs: clear to auscultation bilaterally Heart: regular rate and rhythm, S1, S2 normal, no murmur, click, rub or gallop Abdomen: soft, non-tender, non-distended, bowel sounds normal; no masses or organomegaly Extremities: RUE erythema/warmth over antecubital fossa, some edema, redness appears to have spread to forearm Pulses: 2+ and symmetric Skin: multiple pustules all over skin, mostly in extremities, likely from IVDU Neurologic: grossly normal, no focal deficits Vinicius Gallagher MD Nov 23, 2018 14:52
--- NOTE | 2018-11-23 14:59 | NUR ---
NURSE NOTES: done dressing of the right hand abscess, used NS, 4x4, covered with Optifoam. Small amount of serous secretion noted, no odor.
[2018-11-23 16:00] VITALS: BP 122/83
[2018-11-23] MEDS: guaiFENesin w/Codeine 5ml Liq ud ORAL PRN (16:52)
--- NOTE | 2018-11-23 18:23 | NUR ---
CASE MANAGEMENT: REVIEW 11/23/2018 SI:RIGHT UPPER EXTREMITY CELLULITES. T 98.5 HR 90 RR 19 B/P 122/83 SATS 98% ON RA NA 133 CL 97 GLU 127 IS: IVF @ 125 mL/HR CEFEPIME IV Q12H VANCO IV Q8H MED/SURG STATUS DCP: PATIENT TO BE DISCHARGED TO HOME ONCE MEDICALLY CLEARED. PLAN OF CARE: CT UPPER EXT
--- NOTE | 2018-11-23 19:28 | NUR ---
HAND-OFF: Report given to LYNETTE Roe.
[2018-11-23 20:00] VITALS: BP 121/66
--- NOTE | 2018-11-23 20:00 | NUR ---
NURSE NOTES: PATIENT ASLEEP IN BED. ON RA, NO SOB, NO ACUTE DISTRESS, LFA IV INTACT, PATENT, RUNNING TKO. ON CONTACT ISO FOR HX OF MRSA NARES AND ACTIVE MRSA BLOOD. BED IN LOWEST POSITION, LOCKED, ALARMS ON. CALL LIGHT IN REACH.
[2018-11-24] VITALS: BP 126/81
[2018-11-24] MEDS: Bactrim-DS 1 tab ORAL SCH (00:43)
[2018-11-24] MEDS: Vancomycin 1.5gm Premix IVPB SCH ×3 (02:00→18:17)
[2018-11-24] MEDS: Morphine Sulfate 4mg/ml Inj (IV USE ONLY) IVP PRN ×2 (02:32→08:23)
[2018-11-24] MEDS: Heparin 5000 units/ml inj SUBQ SCH ×2 (05:14→13:11)
[2018-11-24 06:38] LABS: ANION GAP 6 mmol/L (5-15); BASOPHILS % (AUTO) 3.1 % (0.0-2.0); BLOOD UREA NITROGEN 14 mg/dL (7-18); CARBON DIOXIDE 29 MMOL/L (21-32); CHLORIDE 100 MMOL/L (98-107); CREATININE 0.8 MG/DL (0.55-1.30); EOSINOPHILS % (AUTO) 17.4 % (0.0-3.0); HEMATOCRIT 40.5 % (42.0-52.0); HEMOGLOBIN 13.5 G/DL (14.2-18.0); LYMPHOCYTES % (AUTO) 42.5 % (20.0-45.0); MEAN CORPUSCULAR VOLUME 78 FL (80-99); MONOCYTES % (AUTO) 10.9 % (1.0-10.0); NEUTROPHILS % (AUTO) 26.2 % (45.0-75.0); PLATELET COUNT 311 K/UL (150-450); POTASSIUM 4.6 MMOL/L (3.5-5.1); RED BLOOD COUNT 5.18 M/UL (4.70-6.10); RED CELL DISTRIBUTION WIDTH 14.5 % (11.6-14.8); SODIUM 135 MMOL/L (136-145); WHITE BLOOD COUNT 3.9 K/UL (4.8-10.8)
--- NOTE | 2018-11-24 07:40 | NUR ---
HAND-OFF: Report given to Oriana OJEDA.
[2018-11-24 08:00] VITALS: BP 125/78
--- NOTE | 2018-11-24 08:00 | NUR ---
NURSE NOTES: received pt in bed, eating breakfast, with complaint of pain at his right arm, where he has cellulitis. Pain medication not due, told patient the next due. IV access at the LFA, pervious. Bed locked at the lowest position possible, call light within easy reach, siderails up x2. Will continue to monitor pt and follow up with the plan of care.
[2018-11-24] MEDS: Docusate 100mg cap ORAL SCH (08:15)
--- NOTE | 2018-11-24 08:51 | NUR ---
SOFTWARE ANALYSTHOUSEPERSON SI:CELLULITES OF RUE VS: BP 126/81, P 95, T 97.8, RR 18, SpO2 95 WBC 3.9, H&H 13.5/40.5, Na 135 IS:BACTRIM-DS 1tab VANCOMYCIN 275ml IVPB HEPARIN SUBQ MORPHINE SULFATE 4mg IVP MED/SURG STATUS
--- NOTE | 2018-11-24 11:47 | Diagnostic Imaging Report ---
Indication: Right arm pain and swelling due to cellulitis. Concern for abscess. HIV positive. IVDA. Technique: Continuous helical transaxial imaging of the chest was obtained from the thoracic inlet to the upper abdomen after intravenous nonionic contrast administration. Coronal 2-D reformats were also obtained. Automatic Exposure Control was utilized. Total Dose length Product (DLP): [address] Dose Index Volume (CTDIvol): 0.15, 0.15, 8.53 mGy Comparison: none Findings: There is subcutaneous reticulation and edema with skin thickening in the anterior part of the arm involving the area of the antecubital fossa extending slightly into the upper forearm as well as slightly into the upper arm as well. The presence of fluid superficially within the antecubital fossa is nonspecific and could be due to underlying phlegmon or small abscess. Correlate clinically. On transaxial images the area of fluid is about 3.5 x 1 cm. At this large [id number], the fluid could be homogeneous capsulated fluid or could be nondrainable phlegmon. This is difficult to tell. Ultrasound may be of benefit. IMPRESSION: Some fluid noted in the antecubital fossa seen in the setting of cellulitis. This could represent phlegmon or abscess. Based on the CT appearance, this may not be aspirateable but consider ultrasound for better evaluation of this. The CT scanner at [facility] is accredited by the [employer] and the scans are performed using dose optimization techniques as appropriate to a performed exam including Automatic Exposure control.
[2018-11-24 12:00] VITALS: BP 125/78
[2018-11-24] MEDS ORDERED: HYDROcodone/Acetamin 5/325 tab ORAL PRN ×2 (12:45→18:15)
[2018-11-24] MEDS ORDERED: HYDROcodone/Acetamin 10/325 tab ORAL PRN ×2 (12:45→18:15)
--- NOTE | 2018-11-24 13:06 | Infectious Diseases Prog Note ---
Assessment/Plan Assessment/Plan ASSESSMENT AND PLAN: 1. right arm/hand cellulitis, staph aureus bacteremia, sepsis, mrsa colonization , fevers, leukocytosis, ivda - vancomycin - day # 6 antibiotics, will need at least 2 weeks iv abx and 4 weeks total abx - check surveillance blood cultures, monitor labs - TTE without vegetation per report - clinically improved - right arm with decreased swelling - CT right arm noted - clinically arm improved and no obvious abscess 2. HIV/AIDS - cd4 - 155 - patient will need outpatient genotyping and anti- retroviral tx with primary HIV MD, bactrim prophylaxis started 3. Hepatitis C. The patient to get genotyping and viral load as an outpatient. Start antiviral therapy for hepatitis C by hepatitis C physician. 4. IV drug abuse. 5. No diabetes history or hypertension. 6. Allergies to abacavir and lamotrigine. 7. Social history positive for IV drug abuse. 8. Family history noncontributory. 9. MAR was noted. 10. Case was discussed with RN. 11. Continue treatments per primary consultants. Subjective Constitutional: Reports: fatigue, other - less fevers ; Denies: fever HEENT: Denies: congestion Respiratory: Denies: shortness of breath Cardiovascular: Denies: chest pain Gastrointestinal/Abdominal: Denies: nausea, vomiting, diarrhea Genitourinary: Denies: dysuria Neurologic: Denies: headache Psychiatric: Denies: depression Skin: Denies: rash Hematologic: Denies: bleeding Musculoskeletal: Reports: pain - less right arm pain Allergies: Coded Allergies: ABACAVIR (Verified Allergy, Severe, Shortness of Breath, 11/19/18) LAMOTRIGINE (Verified Allergy, Unknown, 11/19/18) Objective Vital Signs Last 24 Hour Vital Signs Date Time Temp Pulse Resp B/P (MAP) Pulse Ox O2 Delivery O2 Flow Rate FiO2 11/24/18 09:00 Room Air 11/24/18 08:53 97.8 11/24/18 08:00 98.0 92 18 125/78 (94) 96 11/24/18 00:00 97.8 94 18 126/81 (96) 95 11/23/18 21:00 Room Air 11/23/18 20:00 98.2 95 18 121/66 (84) 95 11/23/18 16:00 98.5 90 19 122/83 (96) 98 Height (Feet): 6 Height (Inches): 5.00 Weight (Pounds): 220 General Appearance: no acute distress HEENT: normocephalic, atraumatic, anicteric, mucous membranes moist Respiratory/Chest: lungs clear, normal breath sounds, no respiratory distress, no accessory muscle use Cardiovascular: normal rate, regular rhythm, no gallop/murmur, no JVD Abdomen: normal bowel sounds, soft, non tender, no organomegaly, non distended Genitourinary: other - no tellez Extremities: no cyanosis, other - right arm swelling better, less pain, less redness Skin: no rash Neurologic/Psychiatric: mosquito sprayer II-XII grossly normal, alert, oriented x 3, responsive Lymphatic: no neck adenopathy Musculoskeletal: no effusion Objective echo - no vegetation, report noted CT right arm: CT Dose Index Volume (CTDIvol): 0.15, 0.15, 8.53 mGy Comparison: none Findings: There is subcutaneous reticulation and edema with skin thickening in the anterior part of the arm involving the area of the antecubital fossa extending slightly into the upper forearm as well as slightly into the upper arm as well. The presence of fluid superficially within the antecubital fossa is nonspecific and could be due to underlying phlegmon or small abscess. Correlate clinically. On transaxial images the area of fluid is about 3.5 x 1 cm. At this large [id number], the fluid could be homogeneous capsulated fluid or could be nondrainable phlegmon. This is difficult to tell. Ultrasound may be of benefit. IMPRESSION: Some fluid noted in the antecubital fossa seen in the setting of cellulitis. This could represent phlegmon or abscess. Based on the CT appearance, this may not be aspirateable but consider ultrasound for better evaluation of this. The CT scanner at [facility] is accredited by the [employer] and the scans are performed using dose optimization techniques as appropriate to a performed exam including Automatic Exposure control. Microbiology Date/Time Source Procedure Growth Status 11/19/18 22:45 Blood Blood Culture - Final Staphylococcus Aureus - Mrsa Complete 11/20/18 05:00 Nasal Nares Right MRSA Culture - Final Staphylococcus Aureus - Mrsa Complete Laboratory Tests Test 11/23/18 17:04 11/24/18 05:35 Vancomycin Level Trough 14.4 ug/mL (5.0-12.0) H White Blood Count 3.9 K/UL (4.8-10.8) L Red Blood Count 5.18 M/UL (4.70-6.10) Hemoglobin 13.5 G/DL (14.2-18.0) L Hematocrit 40.5 % (42.0-52.0) L Mean Corpuscular Volume 78 FL (80-99) L Mean Corpuscular Hemoglobin 26.1 PG (27.0-31.0) L Mean Corpuscular Hemoglobin Concent 33.4 G/DL (32.0-36.0) Red Cell Distribution Width 14.5 % (11.6-14.8) Platelet Count 311 K/UL (150-450) Mean Platelet Volume 5.8 FL (6.5-10.1) L Neutrophils (%) (Auto) 26.2 % (45.0-75.0) L Lymphocytes (%) (Auto) 42.5 % (20.0-45.0) Monocytes (%) (Auto) 10.9 % (1.0-10.0) H Eosinophils (%) (Auto) 17.4 % (0.0-3.0) H Basophils (%) (Auto) 3.1 % (0.0-2.0) H Sodium Level 135 MMOL/L (136-145) L Potassium Level 4.6 MMOL/L (3.5-5.1) Chloride Level 100 MMOL/L (98-107) Carbon Dioxide Level 29 MMOL/L (21-32) Anion Gap 6 mmol/L (5-15) Blood Urea Nitrogen 14 mg/dL (7-18) Creatinine 0.8 MG/DL (0.55-1.30) Estimat Glomerular Filtration Rate > 60 mL/min (>60) Glucose Level 98 MG/DL (74-106) Calcium Level 9.0 MG/DL (8.5-10.1) Current Medications Medications (Trade) Dose Ordered Sig/Macarena Route PRN Reason Start Time Stop Time Status Last Admin Dose Admin Acetaminophen (Tylenol) 650 mg Q4H PRN ORAL Mild Pain (Pain Scale 1-3) 11/20/18 10:30 12/20/18 10:29 11/23/18 21:18 Acetaminophen (Tylenol) 650 mg Q4H PRN ORAL T>100.5 11/20/18 10:30 12/20/18 10:29 Acetaminophen/ Hydrocodone Bitart ([place] 10/325) 1 tab Q4H PRN ORAL Severe Pain (Pain Scale 7-10) 11/24/18 12:45 12/01/18 12:44 11/24/18 12:45 Acetaminophen/ Hydrocodone Bitart ([place] 5/325) 1 tab Q4H PRN ORAL Moderate Pain (Pain Scale 4-6) 11/24/18 12:45 12/01/18 12:44 Al Hydroxide/Mg Hydroxide (Mylanta II) 30 ml Q6H PRN ORAL dyspepsia 11/20/18 10:30 12/20/18 10:29 Bisacodyl (Dulcolax) 10 mg HSPRN PRN RECTAL Constipation 11/20/18 10:30 12/20/18 10:29 Cetylpyridinium Chloride (Cepacol) 1 lozg Q2H PRN LUCIO For Pain 11/20/18 01:15 12/20/18 01:14 11/23/18 16:52 Dextrose (Dextrose 50%) 25 ml Q30M PRN IV Hypoglycemia 11/20/18 10:30 12/20/18 10:29 Dextrose (Dextrose 50%) 50 ml Q30M PRN IV Hypoglycemia 11/20/18 10:30 12/20/18 10:29 Diphenhydramine HCl (Benadryl) 25 mg Q6H PRN ORAL Itching/Pruritis 11/20/18 10:30 12/20/18 10:29 Docusate Sodium (Colace) 100 mg EVERY 12 HOURS ORAL 11/20/18 21:00 12/20/18 20:59 11/21/18 21:20 Guaifenesin/ Codeine Phosphate (Robitussin with codeine) 5 ml Q6H PRN ORAL For Cough 11/20/18 01:15 12/20/18 01:14 11/23/18 16:52 Heparin Sodium (Porcine) (Heparin 5000 units/ml) 5,000 units EVERY 8 HOURS SUBQ 11/20/18 14:00 12/20/18 13:59 11/24/18 05:14 Lorazepam (Ativan 2mg/ml 1ml) 0.5 mg Q4H PRN IV For Anxiety 11/20/18 10:30 11/27/18 10:29 Magnesium Hydroxide (Mom) 30 ml HSPRN PRN ORAL Constipation 11/20/18 10:30 12/20/18 10:29 Ondansetron HCl (Zofran) 4 mg Q6H PRN IVP Nausea & Vomiting 11/20/18 10:30 12/20/18 10:29 Phenol/Menthol (Chloraseptic) 1 spray Q3H PRN ORAL For Pain 11/20/18 01:15 12/20/18 01:14 11/20/18 16:07 Polyethylene Glycol (Miralax) 17 gm HSPRN PRN ORAL Constipation 11/20/18 10:30 12/20/18 10:29 Temazepam (Restoril) 15 mg HSPRN PRN ORAL Insomnia 11/20/18 21:00 11/27/18 20:59 11/23/18 21:18 Trimethoprim/ Sulfamethoxazole (Bactrim-DS) 1 tab Q24HRS ORAL 11/22/18 00:30 11/29/18 00:29 11/24/18 00:43 Vancomycin HCl (Vanco rx to dose) 1 ea DAILY PRN MISC . 11/21/18 09:45 12/21/18 09:44 Vancomycin HCl/ Dextrose 275 ml @ 137.5 mls/ hr Q8H IVPB 11/24/18 02:00 11/29/18 01:59 11/24/18 11:53 Prisca June MD Nov 24, 2018 13:06
--- NOTE | 2018-11-24 13:28 | NUR ---
HOMELESS COORDINATOR spoke with patient and patient is alert and oriented. Patient does have a contact number . Patient states he is chronically homeless and does not want resources for mcc.Patient states he lost his job and couldn't afford rent, which is the cause of his homelessness. Patient states he has been living with different friends, sleeping on their couches. Patient states he has only been homeless for a few months. Patient does have a contact center consultant, Alfredo Macario ( friend) [phone]. patient states he has no source of income at the moment but does receive food stamps. Patient states he suffers from mental health but refuse to say what kind. Patient states he suffers from substance abuse but refuse to state his drug of choice. [facility] provided resources for mental and substance abuse upon patient request. Patient states he will return to pervious living situation upon discharge. Patient states he would like bus tokens. Patient PCP is [address] [address].
--- NOTE | 2018-11-24 15:31 | NUR ---
*-* INSURANCE *-* ALL CLINICALS HAVE BEEN FAXED TO: MEAGHAN JONES: REMI Byrd F:[phone] P:[phone]
[2018-11-24 16:00] VITALS: BP 128/82
--- NOTE | 2018-11-24 16:55 | Surgery Progress Note ---
Surgery Progress Note Subjective Additional Comments afebrile,HD stable, improved today. edema improved CT noted Objective Last 24 Hour Vital Signs Date Time Temp Pulse Resp B/P (MAP) Pulse Ox O2 Delivery O2 Flow Rate FiO2 11/24/18 16:00 97.9 95 18 128/82 (97) 97 11/24/18 13:15 97.8 11/24/18 12:00 98.0 94 19 125/78 (94) 96 11/24/18 09:00 Room Air 11/24/18 08:53 97.8 11/24/18 08:00 98.0 92 18 125/78 (94) 96 11/24/18 00:00 97.8 94 18 126/81 (96) 95 11/23/18 21:00 Room Air 11/23/18 20:00 98.2 95 18 121/66 (84) 95 I&O Intake and Output 11/23/18 11/24/18 19:00 07:00 Intake Total 1475.000 ml 1400 ml Balance 1475.000 ml 1400 ml Intake Oral 1200 ml 1400 ml IV Total 275.000 ml # Voids 5 5 # Bowel Movements 1 Dressing: dry Wound: clean Cardiovascular: RSR Respiratory: clear Abdomen: soft, flat, non-tender Extremities: edema, no tenderness, no cyanosis Laboratory Tests Test 11/23/18 17:04 11/24/18 05:35 Vancomycin Level Trough 14.4 ug/mL (5.0-12.0) H White Blood Count 3.9 K/UL (4.8-10.8) L Red Blood Count 5.18 M/UL (4.70-6.10) Hemoglobin 13.5 G/DL (14.2-18.0) L Hematocrit 40.5 % (42.0-52.0) L Mean Corpuscular Volume 78 FL (80-99) L Mean Corpuscular Hemoglobin 26.1 PG (27.0-31.0) L Mean Corpuscular Hemoglobin Concent 33.4 G/DL (32.0-36.0) Red Cell Distribution Width 14.5 % (11.6-14.8) Platelet Count 311 K/UL (150-450) Mean Platelet Volume 5.8 FL (6.5-10.1) L Neutrophils (%) (Auto) 26.2 % (45.0-75.0) L Lymphocytes (%) (Auto) 42.5 % (20.0-45.0) Monocytes (%) (Auto) 10.9 % (1.0-10.0) H Eosinophils (%) (Auto) 17.4 % (0.0-3.0) H Basophils (%) (Auto) 3.1 % (0.0-2.0) H Sodium Level 135 MMOL/L (136-145) L Potassium Level 4.6 MMOL/L (3.5-5.1) Chloride Level 100 MMOL/L (98-107) Carbon Dioxide Level 29 MMOL/L (21-32) Anion Gap 6 mmol/L (5-15) Blood Urea Nitrogen 14 mg/dL (7-18) Creatinine 0.8 MG/DL (0.55-1.30) Estimat Glomerular Filtration Rate > 60 mL/min (>60) Glucose Level 98 MG/DL (74-106) Calcium Level 9.0 MG/DL (8.5-10.1) Plan Problems: (1) HIV (human immunodeficiency virus infection) (2) IVDU (intravenous drug user) (3) Cellulitis of right upper extremity Assessment & Plan: arm evaluated patient admits to IVDA but in left arm states has not used right arm for drugs recently used in past cellulitis and edema but no abscess noted. no significant trauma noted. no wound labs noted micro w/ staph bacteremia CT noted. likely non drainable phlegmon given clinical exam edema improved cellulitis improved better range of motion pain improved no acute surgical intervention planned will monitor arm elevate arm cont IV ABx as per ID thank you will follow with Liborio Lara Nov 24, 2018 16:55
--- NOTE | 2018-11-24 19:15 | NUR ---
NURSE NOTES: Got report from Chiara OJEDA. Pt in stable condition. Denies any pain. No s/s of distress or discomfort noted. Pt resting in bed comfortably. Bed in low and locked position, call light within reach, bedside table within reach. continue to monitor.
[2018-11-24 20:00] VITALS: BP 127/74
--- NOTE | 2018-11-24 21:19 | General Progress Note ---
Assessment/Plan Assessment/Plan: 48 y/o man with HIV pos, presents with RUE cellulitis with poss abscess, with hx of recent IVDA. #RUE Cellulitis, r/o abscess - Cont broad spectrum IV abx - ID consultation noted, cefepime added - f/u cultures- now with blood cx growing staph aureus, await sensi - Echo- no vegetations - Pain control - Surgical consult appreciated no intervention rec #HIV disease #Hep C pos #IVDA - Monitor for withdrawal symptoms - ID evaluation noted, pt not on any HIV medications, will likely need better outpt followup #Dispo -likely dc in am Subjective Date patient seen: Nov 24, 2018 Time patient seen: 10:00 Allergies: Coded Allergies: ABACAVIR (Verified Allergy, Severe, Shortness of Breath, 11/19/18) LAMOTRIGINE (Verified Allergy, Unknown, 11/19/18) All Systems: reviewed and negative except above Subjective No acute overnight events, still complaining of RUE pain, improved from prior, has no other complaints. Objective Last 24 Hour Vital Signs Date Time Temp Pulse Resp B/P (MAP) Pulse Ox O2 Delivery O2 Flow Rate FiO2 11/24/18 16:00 97.9 95 18 128/82 (97) 97 11/24/18 13:15 97.8 11/24/18 12:00 98.0 94 19 125/78 (94) 96 11/24/18 09:00 Room Air 11/24/18 08:53 97.8 11/24/18 08:00 98.0 92 18 125/78 (94) 96 11/24/18 00:00 97.8 94 18 126/81 (96) 95 Intake and Output 11/23/18 11/24/18 19:00 07:00 Intake Total 1658.333 ml 1400 ml Balance 1658.333 ml 1400 ml Intake Oral 1200 ml 1400 ml IV Total 458.333 ml # Voids 5 5 # Bowel Movements 1 Laboratory Tests 11/24/18 05:35: White Blood Count 3.9L, Red Blood Count 5.18, Hemoglobin 13.5L, Hematocrit 40.5L , Mean Corpuscular Volume 78L, Mean Corpuscular Hemoglobin 26.1L, Mean Corpuscular Hemoglobin Concent 33.4, Red Cell Distribution Width 14.5, Platelet Count 311, Mean Platelet Volume 5.8L, Neutrophils (%) (Auto) 26.2L, Lymphocytes (%) (Auto) 42.5, Monocytes (%) (Auto) 10.9H, Eosinophils (%) (Auto) 17.4H, Basophils (%) (Auto) 3.1H, Sodium Level 135L, Potassium Level 4.6, Chloride Level 100, Carbon Dioxide Level 29, Anion Gap 6, Blood Urea Nitrogen 14, Creatinine 0.8, Estimat Glomerular Filtration Rate > 60, Glucose Level 98, Calcium Level 9.0 Height (Feet): 6 Height (Inches): 5.00 Weight (Pounds): 220 Objective General: alert, cooperative, no distress, appears stated age Head: normocephalic, without obvious abnormality, atraumatic Eyes: conjunctivae/corneas clear. PERRL, EOM's intact Throat: lips, mucosa, and tongue normal. MMM Neck: supple, symmetrical, trachea midline, and no JVD Lungs: clear to auscultation bilaterally Heart: regular rate and rhythm, S1, S2 normal, no murmur, click, rub or gallop Abdomen: soft, non-tender, non-distended, bowel sounds normal; no masses or organomegaly Extremities: RUE erythema/warmth over antecubital fossa, some edema, redness appears to have spread to forearm Pulses: 2+ and symmetric Skin: multiple pustules all over skin, mostly in extremities, likely from IVDU Neurologic: grossly normal, no focal deficits Adelaida Flor MD Nov 24, 2018 21:19
[2018-11-24] MEDS ORDERED: Tubing IV Secondary IV ONE (21:36)
[2018-11-24] MEDS ORDERED: NS 275ml ONE (21:36)
--- NOTE | 2018-11-24 21:37 | NUR ---
2136: Pt at nurses station and wanting to leave hospital AMA. Talked to pt about importance of staying in hospital and wait until doctor clears you to leave. Pt is stating that he just wants to leave and that he was happy with his overall care at the hospital. He was just tired of staying at the hospital. Pt friend in room. Pt been wanting to leave and insisting to leave and wants all his belongings. Security present and belongings brought up to pt. Pt asking about his hat, but upon verification of belongings sheet nothing documented. Pt states "I probably left it at home." AMA forms signed. Dr. Gallagher and Dr. Sarabia notified. Dr. Sarabia called back and said he can leave if he wants. I asked Dr. Sarabia if he can continue his abx PO as pt requests but he said "I don't recommend." Pt did not wait for Dr. Gallagher phone call back. Dr. Gallagher office number given to pt. Pt left with friend awake, alert, and ambulatory. Pt states he has place to go two blocks away. He does not want to go to a homeless snf and refused taxi voucher. Addendum: 11/24/18 at 2310 by Tu Estes RN Charge nurse Will and Nursing supervisor reclamation Yoshi notified.
--- NOTE | 2018-11-27 17:22 | Discharge Summary ---
Discharge Summary Hospital Course Date of Admission Nov 19, 2018 at 22:01 Date of Discharge Nov 24, 2018 at 21:37 Admitting Diagnosis Right upper extremity cellultiis HPI Tu Nixon is a 48 year old male who was admitted on Nov 19, 2018 at 22:01 for Right Upper Extremity Cellulitis 48-year-old male who presented ED for pain and redness to his right arm for the last 3 days. Stated that he is an IV drug user and injected very recently. Denies fevers or chills. Denied any discharge. He has History of HIV, however has not been on his medications for the last 4 months because he does not have a PMD. No other aggravating relieving factors. Denies any other associated symptoms. He was admitted overnight for IV abx. Today he has a fever >101. States he has a lot of pain in the RUE. He states he is also Hep C positive. Hospital Course 48 y/o man with HIV pos, presents with RUE cellulitis with poss abscess, with hx of recent IVDA. #RUE Cellulitis, r/o abscess - Cont broad spectrum IV abx - ID consultation noted, cefepime added - f/u cultures- now with blood cx growing staph aureus, await sensi - Echo- no vegetations - Pain control - Surgical consult appreciated no intervention rec #HIV disease #Hep C pos #IVDA - Monitor for withdrawal symptoms - ID evaluation noted, pt not on any HIV medications, will likely need better outpt followup #Dispo -Pt left against medical advice Discharge Discharge Disposition Patient was discharged to Adelaida Flor MD Nov 27, 2018 17:22
== END 2018-11-24 21:37 | disposition left against medical advice (07) | DRG 894 ==
LOC: EMR 21:45 → 3E 22:01 → EDBEDREQ 22:25 → 4E 23:45
DX: L03.113 Cellulitis of right upper limb (principal); B20 Human immunodeficiency virus [HIV] disease; B19.20 Unspecified viral hepatitis C without hepatic coma; F19.10 Other psychoactive substance abuse, uncomplicated; Z59.0 Homelessness
CPT/HCPCS: 36415; 80048; 80053; 80202; 83605; 83735; 85025; 85610; 85730; 86360; 86592; 86705; 86709; 86803; 86850; 86870; 86900; 86901; 87040; 87081; 87181; 87340; 87536; 93306; 93970; 96365; 96375; 99285